=== PATIENT | female | born 1945 | race Caucasian/White ===

== ENCOUNTER 2020-03-18 08:05 | Outpatient (RCR) | payer OTHER, MEDICARE, SELFPAY | END 2020-04-17 23:59 | disposition home or self-care (01) | LOC: SPT 08:05 | PROVIDERS: PCP Family Medicine; Referring Provider Family Medicine; Visit Provider Family Medicine | DX: R42 Dizziness and giddiness (principal) | CPT/HCPCS: 95992; 97110; 97112; 97162 ==

== ENCOUNTER 2020-05-13 07:41 | Inpatient (IN) | payer OTHER, MEDICARE, SELFPAY ==
[2020-05-13] VITALS (15 sets, daily range): BP systolic 123–169; BP diastolic 70–91; PULSE 64–104; RESP 15–18; TEMP 36.5–36.9; O2SAT 95–99; BMI 26.6
--- NOTE | 2020-05-13 07:49 | XR_ITS ---
WS: [id number] Exam: XR chest 1V portable [id number] Date/Time of Exam: 05/13/2020 7:56 AM Reason For Exam: dyspnea/cough Comparison 08/15/2018. Findings: The lungs are clear and fully expanded. Costophrenic angles are sharp. No infiltrates. Bronchovascula r relief appears normal. Cardiac silhouette is unremarkable. Bony elements are intact. XR/XR chest 1V portable [id number] IMPRESSION: Unremarkable chest radiograph.
--- NOTE | 2020-05-13 08:04 | ED_ITS ---
HPI - Nausea/Vomiting/Diarrhea General: Chief complaint: Nausea/Vomiting/Diarrhea Stated complaint: N/V, DIZZINESS Time Seen by Provider: 05/13/20 07:47 History of Present Illness: HPI Narrative: 75-year-old female presents emergency room complaining of nausea vomiting and some episodes of loose stool. It began this morning. She had recently been taken off her amitriptyline because of episodes of dizziness. She usually sees Dr. Collins should sometime in mid March she stopped the amitriptyline. Prior to that she had 1 other episode of severe dizziness states when she has the episodes movement seems to worsen it but between episodes movement turning her head change in posture etc. does not change at all. There is no associated change in vision speech or swallowing. She denies any chest pain. States she chronically has some bowel issues and occasionally has some bowel discomfort but is not particularly worsened when she gets these episodes other than being very nauseous. No shortness of breath. MD elicited complaint: nausea, vomiting and diarrhea Onset (ago): hour(s) Description of vomiting: watery Description of diarrhea: lose Associated nausea: No Location of pain: None Radiation: diffuse Severity: moderate Exacerbating factors: vomiting, movement and standing Relieving factors: rest Associated symtoms: Denies altered mental status, anxiety, bloating, change in vision, chest pain, cough, diaphoresis, decreased urine output, dizziness, dysuria, epistaxis, fatigue, fecal incontinence, fevers/chills, headache(s), anorexia, malaise, myalgias, nausea, numbness, palpitations, rash, short of breath, syncope, tenesmus, tinnitus or weakness Review of Systems Const: Denies: fatigue, malaise or diaphoresis Eyes: Denies: change in vision ENMT: Denies: tinnitus Card: Denies: chest pain, palpitations or syncope Resp: Denies: dyspnea, productive cough or non-productive cough GI: Denies: nausea, bloating or fecal incontinence : Denies: dysuria Skin/Breast: Denies: rash or pruritus Neuro: Denies: headache(s) or dizziness PFS ED PFSH: Medical History Asthma Chronic back pain DJD (degenerative joint disease) Hyperlipidemia Surgical History History of back surgery History of knee joint replacement History of lumbar surgery History of neck surgery History of tonsillectomy History of total hysterectomy Family History (Updated 05/13/20 @ 11:47 by Cleveland Todd MD) Other CAD (coronary artery disease) Dementia Social History (Updated 05/13/20 @ 11:47 by Cleveland Todd MD) Smoking and tobacco status: never smoked Alcohol intake: never Substance/Drug Use: never Physical Exam Const: COMMON NORMALS: no acute distress EXAM LIMITATIONS: no altered mental status GENERAL APPEARANCE: cooperative and comfortable ORIENTATION/CONSCIOUSNESS: Yes awake, Yes oriented to person, Yes oriented to place and Yes oriented to time HENMT: COMMON NORMALS: normocephalic, atraumatic, hearing grossly normal bilaterally, external ears normal, EAC's normal, TM's normal bilaterally and Normal nasal mucous membranes and turbinates present HEAD & SCALP: normocephalic and atraumatic NOSE: Normal nasal mucous membranes and turbinates present EXTERNAL EAR: Yes external ears normal EXTERNAL AUDITORY CANAL: EAC's normal TYMPANIC MEMBRANE: TM's normal bilaterally Eye: COMMON NORMALS: Equal, round and reactive pupils present, EOMs intact bilaterally, conjunctivae normal and no scleral icterus CONJUNCTIVA: Yes conjunctivae normal PUPIL: Yes Equal, round and reactive pupils present Neck/C-Spine: COMMON NORMALS: no JVD Lymph: LYMPHATIC: no lymphadenopathy noted and no lymphedema noted Resp: COMMON NORMALS: normal respiratory effort, No retractions, No use of accessory muscles and clear to auscultation bilaterally AUSCULTATION: clear to auscultation bilaterally Cardio: COMMON NORMALS: no JVD, regular rate, regular rhythm and No murmurs present (Cardio) RATE: regular rate and tachycardic RHYTHM: regular rhythm and abnormal rhythm irregularly irregular GI: COMMON NORMALS: Soft to palpation and No hepatosplenomegaly present AUSCULTATION: Yes normoactive bowel sounds PALPATION: Yes Soft to palpation, No Tenderness to palpation present (GI), No Guarding due to palpation present (GI) and Yes No hepatosplenomegaly present Extremity: COMMON NORMALS: normal to inspection, capillary refill normal, no clubbing, cyanosis or edema, no calf tenderness and no pedal edema Neuro: SENSORIUM/ORIENTATION: Yes oriented to person, Yes oriented to place and Yes oriented to time Skin: COMMON NORMALS: no rashes or lesions noted GENERAL SKIN EXAM: no rashes or lesions noted Course Vital Signs: Vital signs: Vital Signs Temperature 98.2 F 05/13/20 15:48 Pulse Rate 80 05/13/20 15:48 Respiratory Rate 18 05/13/20 15:48 Blood Pressure 162/91 05/13/20 15:48 Pulse Oximetry 97 05/13/20 15:48 MDM - Nausea/Vomiting/Diarrhea MDM Narrative: Medical decision making narrative: Patient was given fluids and went to attempted ambulation she had severe difficulty with balance and was un able to ambulate independently she kept falling to the right. She has no other focal neurologic deficits. Suspect this may be just labyrinthitis she could be having a posterior CVA we will go ahead and put her on observation she will need to be watched further evaluation prior to discharge. Bridget with hospitalist orders written. Lab Data: Labs: Lab Results 05/13/20 05/13/20 05/13/20 Range/Units 08:40 08:40 08:40 WBC 10.1 H (4.0-10.0) 10^3/ uL RBC 5.52 H (4.1-5.3) 10^6/u L Hgb 15.9 H (11.5-15.3) g/dL Hct 47.4 H (37.0-47.0) % MCV 85.9 (81-99) fL MCH 28.8 (28.0-34.0) pg MCHC 33.5 (30.0-36.0) g/dL RDW 11.8 L (12.1-15.1) % Plt Count 173 (130-400) 10^3/c mm MPV 11.0 H (7.4-10.4) fL Neut % (Auto) 75.4 % Lymph % (Auto) 13.3 % [place] % (Auto) 8.3 % Eos % (Auto) 2.1 % Baso % (Auto) 0.6 % Neut # (Auto) 7.58 (1.8-7.7) 10^3/u L Lymph # (Auto) 1.3 (0.8-4.8) 10^3/u L [place] # (Auto) 0.8 (0.2-0.9) 10^3/u L Eos # (Auto) 0.2 (0.0-0.8) 10^3/u L Baso # (Auto) 0.1 (0.0-0.1) 10^3/u L Nucleated RBC % (a uto) 0 % Nucleated RBCs # 0.0 /100WBC Sodium 137 (136-145) mmol/L Potassium 3.5 (3.5-5.1) mmol/L Chloride 98 (98-107) mmol/L Carbon Dioxide 27 (22-29) mmol/L Anion Gap 15.5 (5-19) BUN 9 (8-23) mg/dL Creatinine 0.7 (0.5-0.9) mg/dL GFR Calculation Not Reportable Glucose 135 H (65-115) mg/dL Calculated Osmolal ity 285 (285-295) mOsm/k g Calcium 9.7 (8.5-10.5) mg/dL Magnesium 2.1 (1.7-2.3) mg/dL Total Bilirubin 0.8 (0.15-1.2) mg/dL AST 19 (0-32) U/L ALT 15 (0-33) U/L Alkaline Phosphata se 110 H (35-105) IU/L Total Protein 7.8 (6.6-8.7) g/dL Albumin 4.7 (3.5-5.2) g/dL Globulin 3.1 (1.3-4.6) g/dL TSH (0.27-4.20) uIU/ mL Urine Color Yellow (Yellow) Urine Appearance Cloudy (CLEAR) Urine pH 8.5 H (5-7) Ur Specific Gravit y 1.015 (1.005-1.030) Urine Protein Neg (Negative) Urine Glucose (UA) Norm (Normal) Urine Ketones Negative (Negative) Urine Blood Neg (Negative) Urine Nitrate Negative (Negative) Urine Bilirubin Neg (Negative) Prot Sulfosalicyli c Acd Negative (Negative) Urine Urobilinogen Norm (Negative) mg/dL Ur Leukocyte Bailey ase Negative (Negative) Urine RBC None (0-2) /hpf Urine WBC 0-4 H (0-5) /hpf Ur Squamous Epith Cells 0-4 H (0-5) /hpf Amorphous Sediment 2+ /hpf Urine Bacteria Trace (NONE) /hpf 05/13/20 Range/Units 08:40 WBC (4.0-10.0) 10^3/ uL RBC (4.1-5.3) 10^6/u L Hgb (11.5-15.3) g/dL Hct (37.0-47.0) % MCV (81-99) fL MCH (28.0-34.0) pg MCHC (30.0-36.0) g/dL RDW (12.1-15.1) % Plt Count (130-400) 10^3/c mm MPV (7.4-10.4) fL Neut % (Auto) % Lymph % (Auto) % [place] % (Auto) % Eos % (Auto) % Baso % (Auto) % Neut # (Auto) (1.8-7.7) 10^3/u L Lymph # (Auto) (0.8-4.8) 10^3/u L [place] # (Auto) (0.2-0.9) 10^3/u L Eos # (Auto) (0.0-0.8) 10^3/u L Baso # (Auto) (0.0-0.1) 10^3/u L Nucleated RBC % (a uto) % Nucleated RBCs # /100WBC Sodium (136-145) mmol/L Potassium (3.5-5.1) mmol/L Chloride (98-107) mmol/L Carbon Dioxide (22-29) mmol/L Anion Gap (5-19) BUN (8-23) mg/dL Creatinine (0.5-0.9) mg/dL GFR Calculation Glucose (65-115) mg/dL Calculated Osmolal ity (285-295) mOsm/k g Calcium (8.5-10.5) mg/dL Magnesium (1.7-2.3) mg/dL Total Bilirubin (0.15-1.2) mg/dL AST (0-32) U/L ALT (0-33) U/L Alkaline Phosphata se (35-105) IU/L Total Protein (6.6-8.7) g/dL Albumin (3.5-5.2) g/dL Globulin (1.3-4.6) g/dL TSH 6.41 H (0.27-4.20) uIU/ mL Urine Color (Yellow) Urine Appearance (CLEAR) Urine pH (5-7) Ur Specific Gravit y (1.005-1.030) Urine Protein (Negative) Urine Glucose (UA) (Normal) Urine Ketones (Negative) Urine Blood (Negative) Urine Nitrate (Negative) Urine Bilirubin (Negative) Prot Sulfosalicyli c Acd (Negative) Urine Urobilinogen (Negative) mg/dL Ur Leukocyte Bailey ase (Negative) Urine RBC (0-2) /hpf Urine WBC (0-5) /hpf Ur Squamous Epith Cells (0-5) /hpf Amorphous Sediment /hpf Urine Bacteria (NONE) /hpf Discharge Plan Discharge Patient Disposition: Admitted As Inpatient Admit Provider: Cleveland Todd Clinical Impression: Dizziness, Nausea Condition: Stable Coding Level of Care Code ED Digital Camera Technician for Chg Fwd Exam Problem Focused
--- NOTE | 2020-05-13 08:08 | CT_ITS ---
WS: [id number] CT HEAD TECHNIQUE: Noncontrast CT of the head obtained from the skullbase to the vertex. CLINICAL INFORMATION: dizziness COMPARISON: None. DLP: 872.[address] scans at [facility] use at least one of these dose optimization techniques: automat ed exposure control; mA and/or kV adjustment per patient size (includes targeted exams where dose is matched to clinical indication); or iterative reconstruction. FINDINGS: No evidence of intracranial hemorrhage or mass effect. Ventricular system and basal cisterns are camp nt. Mild small vessel changes with mild parenchymal volume loss. Benign basal ganglia calcifications. No extra-axial fluid collections. No evidence of mass or mass effect. Normal garcia-white differentiat ion. Paranasal sinuses and mastoid air cells are well aerated. .Normal visualized soft tissues. CT/CT head wo con* [id number] IMPRESSION: 1. No evidence of intracranial hemorrhage or mass effect. 2. Mild small vessel changes. Mild parenchymal volume loss. 3. No acute intracranial findings.
[2020-05-13] MEDS: promethazine 25 mg/mL SDV 1 mL 12.5 MG IM (08:22)
[2020-05-13] MEDS: sodium chloride 0.9% 500 ML 999 ML IV (08:22)
[2020-05-13 08:45] LABS: Basophils # 0.1 10^3/uL (0.0-0.1); Basophils % 0.6 %; Eosinophils # 0.2 10^3/uL (0.0-0.8); Eosinophils % 2.1 %; Hematocrit 47.4 % (37.0-47.0); Hemoglobin 15.9 g/dL (11.5-15.3); Lymphocytes # 1.3 10^3/uL (0.8-4.8); Lymphocytes % 13.3 %; Mean Corpuscular HGB Conc 33.5 g/dL (30.0-36.0); Mean Corpuscular Hemoglobin 28.8 pg (28.0-34.0); Mean Corpuscular Volume 85.9 fL (81-99); Monocytes # 0.8 10^3/uL (0.2-0.9); Monocytes % 8.3 %; Neutrophils # 7.58 10^3/uL (1.8-7.7); Neutrophils % 75.4 %; Nucleated Red Blood Cells % 0 %; Platelet Count 173 10^3/cmm (130-400); Red Blood Count 5.52 10^6/uL (4.1-5.3); Red Cell Distribution Width 11.8 % (12.1-15.1); White Blood Count 10.1 10^3/uL (4.0-10.0)
[2020-05-13 08:57] LABS: Add Urine Microscopic? YES; Amorphous Sediment Urine 2+ /hpf; Bacteria Urine TRACE /hpf; Bilirubin Urine Neg (Negative); Blood Urine Neg (Negative); Glucose Urine UA Norm (Normal); Ketones Urine Negative (Negative); Leukocyte Esterase Urine Negative (Negative); Nitrate Urine Negative (Negative); Protein Urine Neg (Negative); Specific Gravity, Urine 1.015 (1.005-1.030); Squamous Epithelial Cell Urine 0-4 /hpf (0-5); Sulfosalicylic Acid Urine Negative (Negative); Urine Appearance Cloudy (CLEAR); Urine Color Yellow (Yellow); Urobilinogen Urine Norm (Negative); WBC Urine 0-4 /hpf (0-5); pH Urine 8.5 (5-7)
[2020-05-13 08:58] LABS: Add Urine Culture? No
[2020-05-13 09:15] LABS: Alanine Aminotransferase 15 U/L (0-33); Albumin Level 4.7 g/dL (3.5-5.2); Alkaline Phosphatase 110 IU/L (35-105); Anion Gap 15.5 (5-19); Aspartate Amino Transferase 19 U/L (0-32); Blood Urea Nitrogen 9 mg/dL (8-23); Calcium 9.7 mg/dL (8.5-10.5); Carbon Dioxide 27 mmol/L (22-29); Chloride 98 mmol/L (98-107); Creatinine Clr Calc Pharmacy 65.0381; Globulin 3.1 g/dL (1.3-4.6); Glucose 135 mg/dL (65-115); Magnesium 2.1 mg/dL (1.7-2.3); Osmolality Calculated 285 mOsm/kg (285-295); Potassium 3.5 mmol/L (3.5-5.1); Sodium 137 mmol/L (136-145); Total Bilirubin 0.8 mg/dL (0.15-1.2); Total Protein 7.8 g/dL (6.6-8.7)
--- NOTE | 2020-05-13 10:45 | CT_ITS ---
WS: [id number] CTA HEAD AND NECK TECHNIQUE: Contrast enhanced CTA of the head and neck with coronal and sagittal reformatted images an d maximum intensity projection (MIP) images. NASCET criteria utilized. CLINICAL INFORMATION: TIA COMPARISON: None. DLP: 2021.[address] scans at [facility] use at least one of these dose optimization techniques: automat ed exposure control; mA and/or kV adjustment per patient size (includes targeted exams where dose is matched to clinical indication); or iterative reconstruction. FINDINGS: RIGHT: Right common carotid artery is patent. Mild atheromatous plaque right carotid bulb. No signifi cant right ICA stenosis. Right ICA is patent to the skull base. LEFT: Left common carotid artery is patent. Mild atheromatous plaque left carotid bulb extending into the ICA. Left ICA is patent to the skull base. No significant left ICA stenosis. Lung apices are well aerated. Heterogenous enhancing thyroid gland. A few small enhancing thyroid nod ules the largest measuring 5 mm in the left. ACDF C4-C6. Disc osteophyte complex with moderate centra l canal stenosis C5-6. INTRACRANIAL CTA: Both vertebral arteries are patent. Codominant and patent vertebral arteries bilaterally. Basilar art may is patent. Normal vascularity to the CLINICAL CYTOGENETICIST territory bilaterally. Both ICAs are patent at the skull base. Mild cavernous carotid calcification. Normal vascularity to t he STEPHEN and MCA territories bilaterally. CT/CT angio headneck* [id number] IMPRESSION: 1. No significant ICA stenosis bilaterally. 2. Normal intracranial CTA. No evidence of high-grade proximal stenosis. 3. Codominant and patent vertebral arteries bilaterally. Notified Derrell Segura DO at 05/13/2020 12:09 PM.
--- NOTE | 2020-05-13 11:43 | PM.HP ---
Providers/Chief Complaint Primary Care Provider: Ac Collins MD Chief Complaint: N/V, DIZZINESS History of Present Illness Dina Velarde is a 75 year old female who presents to the emergency department with complaints of dizziness. She reports that upon waking up this morning at 530, she tried to get out of bed and was significantly dizzy. She reported she got nauseous and threw up 3 or 4 times. She reports this happened to her about a year ago and lasted for several hours and then went away. She denies any history of chronic dizziness. reports no issues with unilateral weakness, speech issues, or cognitive issues. Patient denies any abdominal pain. She denies any diarrhea or vomiting. She reports no new medications. She recently went off her amitriptyline. She denies fevers, history of Covid, exposure to Covid. No recent falls. She has had a little bit of dysuria recently. Review of Systems General: Reports: 10 or more systems reviewed and unremarkable except in HPI and below Const: Denies: fever(s) or chills Eyes: Denies: change in vision ENMT: Denies: throat pain Card: Denies: chest pain Resp: Denies: dyspnea GI: Reports: nausea and vomiting; Denies: abdominal pain : Reports: dysuria; Denies: flank pain Musc: Denies: neck pain Skin/Breast: Denies: rash Neuro: Denies: headache(s) Psych: Denies: anxiety Endo: Denies: polyuria Buck/Lymph: Denies: easy bruising All/Imm: Denies: urticaria Medications/Allergies Home Medications Medication Instructions Recorded Confirmed Last Taken Type budesonide-formoterol HFA 80 2 puff INHALATION BID PRN 07/30/19 05/13/20 Unknown History mcg-4.5 mcg/actuation aerosol inhaler dicyclomine 10 mg capsule 10 mg PO DAILY PRN cap 07/30/19 05/13/20 05/13/20 History ezetimibe 10 mg tablet 10 mg PO DAILY@20 07/30/19 05/13/20 05/12/20 History hyoscyamine sulfate 0.125 mg tablet 0.125 mg PO QID@08,12,15,20 07/30/19 05/13/20 05/13/20 History metaxalone 800 mg tablet 800 mg PO TID@08,12,20 07/29/20 01/26/21 01/26/21 History simvastatin 40 mg tablet 40 mg PO DAILY@20 07/30/19 05/13/20 05/12/20 History morphine 30 - 60 mg PO Q4H PRN 05/13/20 05/13/20 05/13/20 History 30 mg pregabalin [Lyrica] 75 mg PO QID@08,,,05/13/20 05/13/20 05/12/20 History Allergies Allergy/AdvReac Type Severity Reaction Status Date / Time acetaminophen [From Vicodin] Allergy anaphylaxis Verified 10/31/19 13:25 aspirin Allergy na Verified 10/31/19 13:25 hydrocodone [From Vicodin] Allergy anaphylaxis Verified 10/31/19 13:25 naproxen Allergy bleeding Verified 10/31/19 13:25 ulcer niacin Allergy rash Verified 10/31/19 13:25 prednisone Allergy rash Verified 10/31/19 13:25 PFSH Acute PFSH: Medical History Asthma Chronic back pain DJD (degenerative joint disease) Hyperlipidemia Surgical History History of back surgery History of knee joint replacement History of lumbar surgery History of neck surgery History of tonsillectomy History of total hysterectomy Family History (Updated 05/13/20 @ 11:47 by Cleveland Todd MD) Other CAD (coronary artery disease) Dementia Social History (Updated 05/13/20 @ 11:47 by Cleveland Todd MD) Smoking and tobacco status: never smoked Alcohol intake: never Substance/Drug Use: never Vitals/I&O/Wt Last Vital Signs Temp 97.8 F 05/13/20 07:53 Pulse 73 05/13/20 10:00 Resp 15 05/13/20 10:00 BP 134/77 05/13/20 10:00 Pulse Ox 96 05/13/20 10:00 05/12/20 05/13/20 05/13/20 22:59 06:59 14:59 Intake Total 500 / 500 Balance 500 / 500 Weight last 48 hrs Weight 77.111 kg Physical Exam Narrative: EXAM NARRATIVE: General exam is a white female in no apparent distress denies dizziness when laying flat. HEENT: Atraumatic and normocephalic. Pupils equally round. Oropharynx is clear. Neck is supple no lymphadenopathy thyromegaly Cardiovascular regular rate and rhythm without murmur. No S3 or S4 Lungs clear no wheezing or crackles Abdomen is soft nontender with positive bowel sounds. No obvious organomegaly was deferred Extremities no cyanosis clubbing or edema, cap refill brisk less than 2 seconds Skin no rash Neuro no focal deficits. I did not ambulate her. She has no evidence of cerebellar signs. No obvious focal deficits. Data : 05/13/20 08:40 05/13/20 08:40 Other data: Urinalysis 0-4 reds, 0-[address] whites LFT[address] essentially normal CT head no acute changes, mild small vessel changes Chest x-ray reviewed by me no infiltrate. Telemetry demonstrates sinus rhythm. I have ordered an EKG. A&P Assessment and plan (1) Dizziness: Observation she was unable to ambulate secondary to her severe recurrent dizziness in the emergency department, posing a great risk for fall. Etiology of dizziness is not known but must exclude posterior circulation abnormality such as stroke. She does not qualify for TPA. CTA is pending If CTA negative consider MRI of brain Neurologic checks, telemetry, check TSH Status: Acute (2) Nausea: Secondary to above Status: Acute Additional A&P Information Hyperlipidemia, continue home medication Chronic back pain, continue home medication History of asthma, continue budesonide formoterol. Albuterol will be given as needed. Allow natural , per patient and Lovenox for DVT prophylaxis Attestations Medical Necessity Statement*: Will need less than 2 midnight stay for evaluation and treatment of dizziness. Time Spent in Patient Care: Greater than 35 minutes Coding Level of Care Code Acute General Office Assistant for g Fwd Diagnoses Dizziness R42 Nausea R11.0
--- NOTE | 2020-05-13 11:50 | ECG_ITS ---
[facility] Test Date: 2020-05-13 Pat Name: Dina Velarde Department: Room: 276 Gender: Female Pleat Taper: : 1945 Requested By: Cleveland Khan Order Number: [id number] Cedric MD: Edgar Jones M.D. Measurements Intervals [place] Rate: 68 P: 27 GA: 164 QRS: 45 QRSD: 82 T: 58 QT: 390 QTc: 416 Interpretive Statements SINUS RHYTHM WITH OCCASIONAL VENTRICULAR PREMATURE COMPLEXES NONSPECIFIC T-WAVE ABNORMALITY Compared to ECG 12/25/2018 06:30:02 Ventricular premature complex(es) now present T-wave abnormality now present Electronically Signed On 05-13-2020 17:13:28 [employer] by Edgar Jones M.D. [email or web address]
[2020-05-13 12:33] LABS: Thyroid Stimulating Hormone 6.41 uIU/mL (0.27-4.20)
--- NOTE | 2020-05-13 12:40 | MR_ITS ---
WS: [id number] MRI HEAD WITHOUT CONTRAST TECHNIQUE: Sagittal T1, T2 axial, T2 axial FLAIR, axial and coronal T1 images, axial susceptibility w eighted imaging, axial diffusion weighted images, and coronal T2 images were obtained. CLINICAL INFORMATION: dizziness, acute COMPARISON: CT earlier today FINDINGS: No evidence of restricted diffusion to suggest acute ischemia. Ventricular system and basal cisterns are patent. Mild small vessel changes. Moderate parenchymal volume loss. Normal posterior fossa. Norm al vascular flow voids at the skull base. No extra axial fluid collections. No evidence of mass or ma ss effect. Mild mucosal thickening in the ethmoid air cells. Mild mucosal thickening in the mastoid a ir cells. Normal optic chiasm and pituitary infundibulum. Mild to moderate symmetric atrophy involving the temp oral lobes and hippocampal formations. No hemosiderin on the susceptibility weighted images. MR/MR head wo con* [id number] IMPRESSION: 1. No evidence of restricted diffusion to suggest acute ischemia. 2. Mild small vessel changes. Moderate parenchymal volume loss. 3. Mild symmetric atrophy involving the temporal lobes hippocampal formations. 4. Mild mucosal thickening in the mastoid tips. 5. No hemosiderin on susceptibly weighted images.
--- NOTE | 2020-05-13 13:44 | PC.NURSE ---
Transportation set up for MRI at 1430
[2020-05-13] MEDS: ondansetron 2 mg/ML SDV 2 mL 4 MG IVP (15:57)
[2020-05-13] MEDS: pregabalin 75 mg Capsule PO ×2 (15:57→22:15)
[2020-05-13] MEDS: D5-NS 0.45% + KCL 20 mEq 20 MEQ/1,000 ML BAG 100 MEQ IV (15:58)
[2020-05-13] MEDS: enoxaparin 40 mg/0.4 mL Syringe SUBCUT (15:59)
--- NOTE | 2020-05-13 21:21 | PC.NURSE ---
PT IS SLEEPING IN BED.
--- NOTE | 2020-05-13 21:21 | PC.NURSE ---
PT IS SLEEPING IN BED.
--- NOTE | 2020-05-13 21:24 | PC.NURSE ---
PT IS SLEEPING IN BED.
[2020-05-13] MEDS: atorvastatin 40 mg Tablet 20 MG PO (22:14)
--- NOTE | 2020-05-13 23:58 | PC.NURSE ---
PT IS SLEEPING IN BED.
[2020-05-14] VITALS (11 sets, daily range): BP systolic 151–192; BP diastolic 78–110; PULSE 81–119; RESP 18–20; TEMP 36.4–37.4; O2SAT 94–100
[2020-05-14] MEDS: D5-NS 0.45% + KCL 20 mEq 20 MEQ/1,000 ML BAG 100 MEQ IV ×2 (01:50→14:19)
[2020-05-14] MEDS: ondansetron 2 mg/ML SDV 2 mL 4 MG IVP ×3 (02:19→23:18)
[2020-05-14 05:45] LABS: Basophils % 0.3 %; Eosinophils # 0.1 10^3/uL (0.0-0.8); Eosinophils % 0.8 %; Hematocrit 45.7 % (37.0-47.0); Hemoglobin 15.3 g/dL (11.5-15.3); Lymphocytes # 1.1 10^3/uL (0.8-4.8); Lymphocytes % 12.8 %; Mean Corpuscular HGB Conc 33.5 g/dL (30.0-36.0); Mean Corpuscular Hemoglobin 28.7 pg (28.0-34.0); Mean Corpuscular Volume 85.7 fL (81-99); Mean Platelet Volume 10.9 fL (7.4-10.4); Monocytes # 0.7 10^3/uL (0.2-0.9); Monocytes % 7.9 %; Neutrophils # 6.85 10^3/uL (1.8-7.7); Neutrophils % 77.9 %; Nucleated Red Blood Cells % 0 %; Platelet Count 179 10^3/cmm (130-400); Red Blood Count 5.33 10^6/uL (4.1-5.3); Red Cell Distribution Width 11.9 % (12.1-15.1); White Blood Count 8.8 10^3/uL (4.0-10.0)
[2020-05-14 06:15] LABS: Alanine Aminotransferase 13 U/L (0-33); Albumin Level 4.3 g/dL (3.5-5.2); Alkaline Phosphatase 100 IU/L (35-105); Anion Gap 12.8 (5-19); Aspartate Amino Transferase 18 U/L (0-32); Blood Urea Nitrogen 8 mg/dL (8-23); Calcium 8.9 mg/dL (8.5-10.5); Carbon Dioxide 26 mmol/L (22-29); Chloride 103 mmol/L (98-107); Creatinine Clr Calc Pharmacy 65.0381; Globulin 2.5 g/dL (1.3-4.6); Glucose 152 mg/dL (65-115); Osmolality Calculated 287 mOsm/kg (285-295); Potassium 3.8 mmol/L (3.5-5.1); Sodium 138 mmol/L (136-145); Total Bilirubin 0.7 mg/dL (0.15-1.2); Total Protein 6.8 g/dL (6.6-8.7)
--- NOTE | 2020-05-14 06:41 | PC.NURSE ---
PT STARTED HAVING SEVERE SYMPTOMS VOMITING, CHILLS, AND STOMACH PAINS.
--- NOTE | 2020-05-14 06:45 | CT_ITS ---
WS: [id number] CT ABDOMEN PELVIS TECHNIQUE: Contrast-enhanced CT of the abdomen and pelvis with coronal and sagittal reformatted image s. CLINICAL INFORMATION: abdominal pain COMPARISON: CT 9 9018 DLP: 704.[address] scans at [facility] use at least one of these dose optimization techniques: automat ed exposure control; mA and/or kV adjustment per patient size (includes targeted exams where dose is matched to clinical indication); or iterative reconstruction. FINDINGS:Tiny amount of induration involving the ascending colon and transverse colon and. Correlatio n for mild colitis. Mild diffuse fatty infiltration liver. Normal spleen. Small splenule. Normal pancreas. Adrenal glands are normal. No hydronephrosis. Normal renal parenchymal enhancement. Normal caliber abdominal aorta. Aortic calcification. Normal sigmoid colon. No evidence of high-grade small or large bowel obstruction. No free fluid in th e abdomen or pelvis. Lung bases are well aerated. Tiny fat-containing umbilical hernia. No abdominal or pelvic lymphadenopathy. Mild spondylitic changes lumbar spine. CT/CT abdomen pelvis w con* [id number] IMPRESSION: 1. Tiny amount of induration involving the ascending colon and transverse colo n and. Correlation for mild colitis. 2. No other significant findings. 3. Mild diffuse fatty infiltration liver. 4. Normal caliber abdominal aorta. 5. No hydronephrosis.
[2020-05-14] MEDS: promethazine 25 mg/mL SDV 1 mL 12.5 MG IM (07:21)
[2020-05-14] MEDS: iohexol 300 mg/mL 100 mL Btl IV (07:59)
[2020-05-14] MEDS: LORazepam 2 mg/mL INJ 1 mL 0.5 MG IVP (09:16)
--- NOTE | 2020-05-14 09:25 | P.PN_ITS ---
Subjective Subjective: Interval history: Dina reports her dizziness has continued since admission. This morning, around 6 AM or so she had a start of some abdominal pain vomiting. She is also having some loose stool. She has had some chills. No fever has been recorded. She would like her Levsin ordered as some of the symptoms have responded to this in the past. She reports her last EGD and colonoscopy were around 5 years ago. Medications: Reviewed: Yes Vitals/I&O/Wt Last Vital Signs Temp 97.7 F 05/14/20 07:47 Pulse 89 05/14/20 08:51 Resp 18 05/14/20 08:51 BP 153/83 05/14/20 07:47 Pulse Ox 96 05/14/20 08:51 05/13/20 05/14/20 05/14/20 22:59 06:59 14:59 Intake Total 986.667 / 1486.667 Balance 986.667 / 1486.667 Weight last 48 hrs Weight 77.111 kg Physical Exam Narrative: EXAM NARRATIVE: General exam is a white female vomiting some bilious appearing material Neck is supple no lymphadenopathy thyromegaly Cardiovascular regular rate and rhythm without murmur. No S3 or S4 Lungs clear no wheezing or crackles Abdomen slight tenderness in the epigastric area. No mass or organomegaly Extremities no cyanosis clubbing or edema, cap refill brisk less than 2 seconds Skin no rash Neuro no focal deficits. Data : 05/14/20 05:24 05/14/20 05:24 A&P Assessment and plan (1) Dizziness: Placed in observation yesterday. With recurrence of vomiting, abdominal pain, and diarrhea she is currently not able to hydrate and may not be able to be discharged. I will reassess her later this afternoon and if requires continued hospitalization will change to regular admission. She was unable to ambulate secondary to her severe recurrent dizziness in the emergency department, posing a great risk for fall. Etiology of dizziness is not known but must exclude posterior circulation abnormality such as stroke. She did not qualify for TPA. After admission her CTA of her head and neck demonstrated no obstruction, an MRI of her brain did not demonstrate a CVA. Status: Acute (2) Nausea: Now with abdominal pain. Patient is convinced Levsin may help. This was ordered as needed. Discussed with her the risks of this that increased nausea or vomiting could occur. Continue hydration Secondary to association with abdominal pain start Pepcid. Check lipase. CT abdomen and pelvis done this morning demonstrated no obstruction. Slight induration involving the ascending and transverse colon noted possible consis tent with colitis. Secondary to the vomiting, diarrhea and chills we will also check a rapid Covid test, C. difficile, stool culture Medication as needed for nausea Status: Acute Additional A&P Information Hyperlipidemia, continue home medication Chronic back pain, continue home medication History of asthma, continue budesonide formoterol. Albuterol will be given as needed. Allow natural , per patient and Lovenox for DVT prophylaxis Attestations Medical Necessity Statement*: At this point needs continued hospital stay secondary to recurrent nausea and vomiting with inability to stay hydrated. Coding Level of Care Code Acute Painter Helper for Roseline Carpenter Diagnoses Dizziness R42 Nausea R11.0
[2020-05-14 09:46] LABS: Lipase 35 U/L (13-60)
[2020-05-14] MEDS: famotidine 20 mg/2 mL INJ IVP ×2 (10:29→21:03)
[2020-05-14 11:26] LABS: SARS Covid-2 Antigen Negative (Negative)
[2020-05-14] MEDS: enoxaparin 40 mg/0.4 mL Syringe SUBCUT (14:20)
[2020-05-14] MEDS: pregabalin 75 mg Capsule PO ×2 (14:21→20:41)
[2020-05-14] MEDS: hyoscyamine ODT 0.125 mg Tablet PO (14:24)
[2020-05-14] MEDS: sodium chloride 0.9% 1,000 ML 125 ML IV (14:28)
[2020-05-14] MEDS: atorvastatin 40 mg Tablet 20 MG PO (20:40)
[2020-05-14] MEDS: labetalol 5 mg/mL SDV 20mL IVP (21:15)
[2020-05-14] MEDS: sodium chloride 0.9% 1,000 ML 100 ML IV (23:10)
[2020-05-15] VITALS (15 sets, daily range): BP systolic 122–190; BP diastolic 73–100; PULSE 68–142; RESP 14–20; TEMP 36.4–37.6; O2SAT 94–97
[2020-05-15] MEDS: hyDRALAzine 20 mg/mL INJ 1 mL 5 MG IVP (03:57)
[2020-05-15 05:31] LABS: Basophils % 0.2 %; Hematocrit 43.9 % (37.0-47.0); Lymphocytes % 5.7 %; Mean Corpuscular HGB Conc 34.2 g/dL (30.0-36.0); Mean Corpuscular Hemoglobin 29.1 pg (28.0-34.0); Mean Corpuscular Volume 85.2 fL (81-99); Mean Platelet Volume 10.9 fL (7.4-10.4); Monocytes # 0.6 10^3/uL (0.2-0.9); Monocytes % 3.2 %; Neutrophils # 16.18 10^3/uL (1.8-7.7); Neutrophils % 90.3 %; Nucleated Red Blood Cells % 0 %; Platelet Count 184 10^3/cmm (130-400); Red Blood Count 5.15 10^6/uL (4.1-5.3); Red Cell Distribution Width 11.9 % (12.1-15.1); White Blood Count 17.9 10^3/uL (4.0-10.0)
[2020-05-15 06:11] LABS: Alanine Aminotransferase 18 U/L (0-33); Albumin Level 4.5 g/dL (3.5-5.2); Alkaline Phosphatase 94 IU/L (35-105); Anion Gap 16.9 (5-19); Aspartate Amino Transferase 25 U/L (0-32); Blood Urea Nitrogen 11 mg/dL (8-23); Calcium 8.8 mg/dL (8.5-10.5); Carbon Dioxide 23 mmol/L (22-29); Chloride 100 mmol/L (98-107); Creatinine Clr Calc Pharmacy 65.0381; Globulin 2.6 g/dL (1.3-4.6); Glucose 157 mg/dL (65-115); Osmolality Calculated 287 mOsm/kg (285-295); Sodium 137 mmol/L (136-145); Total Bilirubin 0.8 mg/dL (0.15-1.2); Total Protein 7.1 g/dL (6.6-8.7)
[2020-05-15 06:16] LABS: Potassium 2.9 mmol/L (3.5-5.1)
[2020-05-15 08:07] LABS: Magnesium 1.7 mg/dL (1.7-2.3)
[2020-05-15] MEDS: lidocaine 1% 5 ML in potassium chloride premix 100 ML 25 ML IV (08:42)
[2020-05-15] MEDS: morphine IR 15 mg Tablet 30 MG PO ×2 (08:43→17:28)
[2020-05-15] MEDS: hyoscyamine ODT 0.125 mg Tablet PO ×2 (08:44→15:14)
[2020-05-15] MEDS: pregabalin 75 mg Capsule PO ×4 (08:44→19:55)
[2020-05-15] MEDS: famotidine 20 mg/2 mL INJ IVP ×2 (09:26→22:44)
--- NOTE | 2020-05-15 09:28 | PC.NURSE ---
PRN Morphine Reassessment- Patient resting in bed with eyes closed sleeping. No signs of distress or pain at this time.
--- NOTE | 2020-05-15 11:03 | PC.CHAP ---
Pastoral Care Encounter/Spiritual Assessment Type of Contact [] Declined case consultant visit [] Patient/Family/Request visit [] Outpatient visit [] Follow-up visit [] Physician referral [] Code/Alert [] Routine visit [] Staff referral [] Actively dying [] Patient sleeping [] Family support [] [] Out of room [] Palliative care [] [] Receiving care in room [] Pre-surgical visit [] Trauma [] Long length of stay [] ICU visit [X] Other: covid 19 Relational/Emotional Strength [] Patient feels connected with others/family/visitors/staff [] Distress [] Loneliness/isolation [] Abandonment Spirituality of Patient [] Person of Bailey [] Attends Buddhist of their Bailey [] Believes in Prayer [] Reads Bible or Baptist materials [] There are Spiritual issues to be addressed Government Contracts Manager Interventions [] Prayer [] Active listening [] Non-anxious presence [] Spiritual/emotional support [] Crisis/trauma care [] Spiritual counseling [] Bereavement support [] Provided bereavement packet [] Provided Bible/devotional materials [] Provided toy/stuffed animal, coloring book to patient or family member [] Provided Communion [] Anointing/[place] [] Salvation [] Completed spiritual assessment [] Other: Impact on Illness or Injury [] Angry [] Fearful [] Anxious [] Often cries [] Exhaustion [] Unable to work [] Unable to attend buddhism [] Unable to walk/stand [] Unable to read [] Unable to drive [] Unable to eat/drink [] Unable to sleep [] Unable to be with family [] Patient intubated [] Other: Summary Other: covid 19 Time spent with patient 5 mins
[2020-05-15] MEDS: sodium chloride 0.9% 1,000 ML 75 ML IV (12:11)
--- NOTE | 2020-05-15 14:33 | ECG_ITS ---
[facility] Test Date: 2020-05-15 Pat Name: Dina Velarde Department: Room: 276 Gender: Female Superintendent [employer]: : 1945 Requested By: Cleveland Khan Order Number: [id number] Cedric MD: Ariella Mackenzie M.D. Measurements Intervals [place] Rate: 86 P: 72 VT: 168 QRS: 58 QRSD: 90 T: 60 QT: 354 QTc: 424 Interpretive Statements SINUS RHYTHM WITH OCCASIONAL VENTRICULAR PREMATURE COMPLEXES Compared to ECG 05/13/2020 07:58:53 T-wave abnormality no longer present Electronically Signed On 05-15-2020 18:13:09 CASTING MACHINE OPERATOR by Ariella Mackenzie M.D. [id number]
--- NOTE | 2020-05-15 14:37 | PM.PN ---
Subjective Subjective: Interval history: Dina reports she feels little bit better. Not dizzy. No chest pain. No shortness of breath. Rate is less, although I see one recording of 142 listed. She states she is still a little nauseous but better. Medications: Reviewed: Yes Vitals/I&O/Wt Last Vital Signs Temp 98.2 F 05/15/20 11:45 Pulse 117 H 05/15/20 11:45 Resp 18 05/15/20 11:45 BP 157/89 05/15/20 11:45 Pulse Ox 96 05/15/20 11:45 05/14/20 05/15/20 05/15/20 22:59 06:59 14:59 Intake Total 1000.000 / 2135.000 1.667 / 2136.667 975 / 975 Output Total 550 / 550 100 / 100 Balance 1000.000 / 2135.000 -548.333 / 1586.667 875 / 875 Physical Exam Narrative: EXAM NARRATIVE: General exam is a white female conversant and appears more comfortable Neck is supple no lymphadenopathy thyromegaly Cardiovascular slight tachycardia, no murmur Lungs clear no wheezing or crackles Abdomen no abdominal tenderness Extremities no cyanosis clubbing or edema, cap refill brisk less than 2 seconds Skin no rash Neuro no focal deficits. Data : 05/15/20 05:09 05/15/20 05:09 A&P Assessment and plan (1) Dizziness: Reports dizziness is much improved She was unable to ambulate secondary to her severe recurrent dizziness in the emergency department, posing a great risk for fall. Etiology of dizziness is not known but must exclude posterior circulation abnormality such as stroke. She did not qualify for TPA. After admission her CTA of her head and neck demonstrated no obstruction, an MRI of her brain did not demonstrate a CVA. Status: Acute (2) Nausea: Abdominal pain started yesterday. Significant loose stools as well. Continue hydration Secondary to association with abdominal pain start Pepcid. Lipase was checked and normal. CT abdomen and pelvis done this morning demonstrated no obstruction. Slight induration involving the ascending and transverse colon noted possible consistent with colitis. Secondary to the vomiting, diarrhea and chills a rapid Covid test, was performed and is negative. C. difficile and stool culture pending Secondary to severe nausea I gave her some steroids yesterday. Hold currently and reassess need tomorrow. Status: Acute Additional A&P Information Hypokalemia. Supplement. Check magnesium level. Hyperlipidemia, continue home medication Chronic back pain, continue home medication History of asthma, continue budesonide formoterol. Albuterol will be given as needed. Allow natural , per patient and Lovenox for DVT prophylaxis Attestations Medical Necessity Statement*: Needs continued hospitalization, for treatment of nausea. Secondary to persistence of this as well as vomiting she is at risk for dehydration Coding Level of Care Code Acute Terrazzo Installer for Roseline Carpenter Diagnoses Dizziness R42 Nausea R11.0
[2020-05-15] MEDS: acetaminophen 325 mg Tablet 650 MG PO ×2 (15:13→22:43)
[2020-05-15] MEDS: methocarbamol 500 mg Tablet PO (15:13)
[2020-05-15] MEDS: enoxaparin 40 mg/0.4 mL Syringe SUBCUT (15:14)
[2020-05-15] MEDS: magnesium sulfate premix 2 GM/50 ML PIGGYBACK IV (16:41)
[2020-05-15] MEDS: atorvastatin 40 mg Tablet 20 MG PO (19:55)
[2020-05-16] VITALS (14 sets, daily range): BP systolic 122–156; BP diastolic 70–86; PULSE 63–96; RESP 16–18; TEMP 36.6–37.2; O2SAT 92–97
[2020-05-16] MEDS: sodium chloride 0.9% 1,000 ML 75 ML IV (02:02)
[2020-05-16 04:45] LABS: Basophils # 0.1 10^3/uL (0.0-0.1); Basophils % 0.5 %; Eosinophils % 0.2 %; Hematocrit 44.1 % (37.0-47.0); Hemoglobin 14.4 g/dL (11.5-15.3); Lymphocytes # 3.6 10^3/uL (0.8-4.8); Lymphocytes % 24.7 %; Mean Corpuscular HGB Conc 32.7 g/dL (30.0-36.0); Mean Corpuscular Hemoglobin 29.1 pg (28.0-34.0); Mean Corpuscular Volume 89.3 fL (81-99); Mean Platelet Volume 10.7 fL (7.4-10.4); Monocytes # 1.6 10^3/uL (0.2-0.9); Monocytes % 10.9 %; Neutrophils % 63.3 %; Nucleated Red Blood Cells % 0 %; Platelet Count 166 10^3/cmm (130-400); Red Blood Count 4.94 10^6/uL (4.1-5.3); Red Cell Distribution Width 12.2 % (12.1-15.1); White Blood Count 14.4 10^3/uL (4.0-10.0)
[2020-05-16 05:10] LABS: Alanine Aminotransferase 19 U/L (0-33); Alkaline Phosphatase 76 IU/L (35-105); Anion Gap 12.8 (5-19); Aspartate Amino Transferase 25 U/L (0-32); Blood Urea Nitrogen 13 mg/dL (8-23); Calcium 8.6 mg/dL (8.5-10.5); Carbon Dioxide 28 mmol/L (22-29); Chloride 103 mmol/L (98-107); Creatinine Clr Calc Pharmacy 65.0381; Globulin 2.5 g/dL (1.3-4.6); Glucose 94 mg/dL (65-115); Magnesium 2.3 mg/dL (1.7-2.3); Osmolality Calculated 290 mOsm/kg (285-295); Potassium 3.8 mmol/L (3.5-5.1); Sodium 140 mmol/L (136-145); Total Bilirubin 0.8 mg/dL (0.15-1.2); Total Protein 6.5 g/dL (6.6-8.7)
[2020-05-16] MEDS: promethazine 25 mg/mL SDV 1 mL IM (09:57)
[2020-05-16] MEDS: morphine IR 15 mg Tablet 30 MG PO ×2 (11:40→18:48)
[2020-05-16] MEDS: methocarbamol 500 mg Tablet PO (11:40)
[2020-05-16] MEDS: pregabalin 75 mg Capsule PO ×3 (11:40→22:18)
[2020-05-16] MEDS: enoxaparin 40 mg/0.4 mL Syringe SUBCUT (14:26)
--- NOTE | 2020-05-16 14:52 | PM.CONSULT ---
Providers/Reason For Consult Consulting Physican/Specialty*: Nguyễn Colmenares MD Reason for Consult*: Persistent nausea and vomiting Attending Physician: Cleveland Todd MD Primary Care Provider: Ac Collins MD History of Present Illness History of Present Illness Chief Complaint: Nausea and vomiting History of present illness: Dina Velarde is a 75 year old female patient has been complaining of nausea and vomiting in a cyclical and frequent episodes over the past year or so without obvious explanation. She denies history of chronic NSAIDs or history of peptic ulcer disease. Patient was admitted on the hospitalist service because of her dizziness and further work-up in the form of CT scan of the abdomen and pelvis: Mild diffuse fatty infiltration liver. Normal spleen. Small splenule. Normal pancreas. Adrenal glands are normal. No hydronephrosis. Normal renal parenchymal enhancement. Normal caliber abdominal aorta. Aortic calcification. Normal sigmoid colon. No evidence of high-grade small or large bowel obstruction. No free fluid in the abdomen or pelvis. Lung bases are well aerated. Tiny fat-containing umbilical hernia. No abdominal or pelvic lymphadenopathy. Mild spondylitic changes lumbar spine. CT/CT abdomen pelvis w con* [id number] IMPRESSION: 1. Tiny amount of induration involving the ascending colon and transverse colon and. Correlation for mild colitis. 2. No other significant findings. 3. Mild diffuse fatty infiltration liver. 4. Normal caliber abdominal aorta. 5. No hydronephrosis. Because of the patient's frequency of nausea and vomiting General surgery was consulted for potential intervention in the form of upper endoscopy, as the patient had one remotely, patient denies any hematemesis or bleeding per rectum. Patient denies history of fatty dyspepsia or biliary colic's when asked her. Review of Systems General: Reports: 10 or more systems reviewed and unremarkable except in HPI and below Meds/Allergies Home Medications and Allergies Home Medications Medication Instructions Recorded Confirmed Last Taken Type budesonide-formoterol HFA 80 2 puff INHALATION BID PRN 07/30/19 05/13/20 Unknown History mcg-4.5 mcg/actuation aerosol inhaler dicyclomine 10 mg capsule 10 mg PO DAILY PRN cap 07/30/19 05/13/20 05/13/20 History ezetimibe 10 mg tablet 10 mg PO DAILY@20 07/30/19 05/13/2005/12/21 History hyoscyamine sulfate 0.125 mg tablet 0.125 mg PO QID@08,,,07/30/19 05/13/20 05/13/20 History metaxalone 800 mg tablet 800 mg PO TID@08,12,20 07/30/19 05/13/20 05/13/20 History simvastatin 40 mg tablet 40 mg PO DAILY@20 07/30/19 05/13/20 05/12/20 History morphine 30 - 60 mg PO Q4H PRN 05/13/20 05/13/20 05/13/20 History 30 mg pregabalin [Lyrica] 75 mg PO QID@,,,05/13/20 05/13/20 05/12/20 History Allergies Allergy/AdvReac Type Severity Reaction Status Date / Time acetaminophen [From Vicodin] Allergy anaphylaxis Verified 05/16/20 14:53 aspirin Allergy na Verified 05/16/20 14:53 hydrocodone [From Vicodin] Allergy anaphylaxis Verified 05/16/20 14:53 naproxen Allergy bleeding Verified 05/16/20 14:53 ulcer niacin Allergy rash Verified 05/16/20 14:53 prednisone Allergy rash Verified 05/16/20 14:53 Current Medications Current Medications Generic Name Dose Route Start Last Admin Trade Name Freq PRN Reason Stop Dose Admin Acetaminophen 650 mg 05/15/20 14:37 05/15/20 22:43 Acetaminophen 325 Mg Tablet PO 650 mg Q6H PRN Administration MILD PAIN Atorvastatin Calcium 20 mg 05/13/20 20:00 05/15/20 19:55 Atorvastatin 40 Mg Tablet PO 20 mg DAILY@20 LAWANDA Administration Enoxaparin Sodium 40 mg 05/13/20 14:00 05/16/20 14:26 Enoxaparin 40 Mg/0.4 Ml Syringe SUBCUT 40 mg Q24H LAWANDA Administration Famotidine 20 mg 05/14/20 09:30 05/16/20 10:01 Famotidine 20 Mg/2 Ml Inj IVP Not Given Q12H LAWANDA Hyoscyamine 0.125 mg 05/14/20 08:48 05/15/20 15:14 Hyoscyamine Odt 0.125 Mg Tablet PO 0.125 mg TIDAC PRN Administration GI IRRITATION Sodium Chloride 1,000 mls @ 75 mls/hr 05/14/20 14:30 05/16/20 11:20 Sodium Chloride 0.9% IV Not Given .[id number] LAWANDA Lorazepam 0.5 mg 05/14/20 08:02 05/14/20 09:16 Lorazepam 2 Mg/Ml Inj 1 Ml IVP 0.5 mg Q4H PRN Administration ANXIETY Methocarbamol 500 mg 05/15/20 15:08 05/16/20 11:40 Methocarbamol 500 Mg Tablet PO 500 mg QID PRN Administration MUSCLE SPASMS Morphine Sulfate 30 mg 05/13/20 12:48 05/16/20 11:40 Morphine Ir 15 Mg Tablet PO 30 mg Q4H PRN Administration SEVERE PAIN Ondansetron HCl 4 mg 05/13/20 12:48 05/14/20 23:18 Ondansetron 2 Mg/Ml Sdv 2 Ml IVP 4 mg Q6H PRN Administration vomiting, or N/V if npo Pregabalin 75 mg 05/13/20 15:00 05/16/20 14:29 Pregabalin 75 Mg Capsule PO 75 mg QID@08,12,15,20 LAWANDA Administration Promethazine HCl 25 mg 05/16/20 08:39 05/16/20 09:57 Promethazine 25 Mg/Ml Sdv 1 Ml IM 25 mg Q6H PRN Administration NAUSEA Fluticasone/Salmeterol 1 puff 05/13/20 20:00 05/15/20 20:52 Fluticasone-Salmeterol 250-50 Diskus INHALATION 1 puff BID.RESPIRATORY LAWANDA Administration PFSH Acute PFSH: Medical History Asthma Chronic back pain DJD (degenerative joint disease) Hyperlipidemia Surgical History History of back surgery History of knee joint replacement History of lumbar surgery History of neck surgery History of tonsillectomy History of total hysterectomy Family History Other CAD (coronary artery disease) Dementia Social History Smoking and tobacco status: never smoked Alcohol intake: never Substance/Drug Use: never Vitals/I&O/Wt Last Vital Signs Temp 98.9 F 05/16/20 12:00 Pulse 88 05/16/20 12:00 Resp 18 05/16/20 12:00 BP 155/83 05/16/20 12:00 Pulse Ox 95 05/16/20 12:00 05/15/20 05/16/20 05/16/20 22:59 06:59 14:59 Intake Total 114 / 2114 1000 / 3115 432.5 / 432.5 Balance 1139 1000 / 3015 432.5 / 432.5 Physical Exam Narrative: EXAM NARRATIVE: Patient is conscious alert oriented X3 BMI 27 Head and neck examination PERRLA no masses no cervical lymphadenopathy no jaundice Cardiac examination audible S1-S2 no murmurs no gallops no arrhythmias Chest is clear bilateral,abscence of Rhonchi or wheezes,no surgical emphysema Abdomen nontender nondistended soft no organomegaly guarding or rigidity/no signs of peritonitis Lower midline scar Extremities no cyanosis no clubbing no edema Data Micro: Micro: Microbiology 05/15/20 04:40 Enteric Pathogens (PCR) - Final Stool Routine Col lection C.difficile Toxin B Gene (PCR) - Fin al A&P Assessment and plan (1) Nausea: Plan of care; After thorough history and physical examination and reviewing the chart, plan to perform a diagnostic esophagogastroduodenoscopy with possible biopsy in the GI lab tomorrow. I discussed with the patient in detail the risk,benefits,alternatives and indications.The risk of aspiration, bleeding, soft tissue injury, perforation of the stomach/esophagus and other potential concomitant complications were explained to the patient in details.The patient understood this well and did agree to proceed. Rationale was carefully and clearly discussed with the patient.Appropriate informed consent have been reviewed and signed All questions have been answered and all concerns have been addressed to patient's satisfaction. I would also recommend to obtain an ultrasound of the gallbladder to rule out potential gallbladder pathology although the CT scan did not show specific changes with that regard.yet an ultrasound would be a better tool to study the gallbladder Status: Acute Consult Attestations Medical Necessity Statement: Continue inpatient hospitalization for medical & surgical care Time Spent in Patient Care: (>than 50% of time spent in counselling and/or direct pt care on unit). Coding Level of Care Code Acute District Claims Manager for [employer] Diagnoses Nausea R11.0
--- NOTE | 2020-05-16 16:05 | P.PN_ITS ---
Subjective Subjective: Interval history: Dina continues to have some vomiting. She has had no diarrhea. No chills. No chest pain or shortness of breath. Medications: Reviewed: Yes Vitals/I&O/Wt Last Vital Signs Temp 98.9 F 05/16/20 12:00 Pulse 88 05/16/20 12:00 Resp 18 05/16/20 12:00 BP 155/83 05/16/20 12:00 Pulse Ox 95 05/16/20 12:00 05/16/20 05/16/20 05/16/20 06:59 14:59 22:59 Intake Total 1000 / 3115 432.5 / 432.5 Balance 1000 / 3015 432.5 / 432.5 Physical Exam Narrative: EXAM NARRATIVE: General exam conversant female, no distress Neck is supple no lymphadenopathy thyromegaly Cardiovascular slight tachycardia, no murmur Lungs clear no wheezing or crackles Abdomen no abdominal tenderness Extremities no cyanosis clubbing or edema, cap refill brisk less than 2 seconds Skin no rash Neuro no focal deficits. Data : 05/16/20 04:32 05/16/20 04:32 Micro: Microbiology 05/15/20 04:40 Enteric Pathogens (PCR) - Final Stool Routine Collection C.difficile Toxin B Gene (PCR) - Final A&P Assessment and plan (1) Dizziness: Reports dizziness has abated She was unable to ambulate secondary to her severe recurrent dizziness in the emergency department, posing a great risk for fall. Etiology of dizziness is not known but must exclude posterior circulation abnormality such as stroke. She did not qualify for TPA. After admission her CTA of her head and neck demonstrated no obstruction, an MRI of her brain did not demonstrate a CVA. Status: Acute (2) Nausea: Abdominal pain started after admission. Reports it is mainly been in her epigastric area. No LFT abnormality. Had some loose stools which have gone renata y. Nausea and vomiting persist. Continue hydration Continue IV Pepcid. Lipase was checked and normal. CT abdomen and pelvis done this morning demonstrated no obstruction. Slight induration involving the ascending and transverse colon noted possible consistent with colitis. C. difficile, stool culture antigens negative Secondary to the vomiting, diarrhea and chills a rapid Covid test, was performed and is negative. C. difficile and stool culture pending Secondary to recurrent vomiting and nausea will consider EGD. Surgical consult. Check gallbladder ultrasound Status: Acute Additional A&P Information Hypokalemia. Resolved Hyperlipidemia, continue home medication Chronic back pain, continue home medication History of asthma, continue budesonide formoterol. Albuterol will be given as needed. Allow natural , per patient and Lovenox for DVT prophylaxis Attestations Medical Necessity Statement*: Needs continued hospitalization secondary to recalcitrant nausea and vomiting Coding Level of Care Code Acute Human Performance Consultant for [facility] Diagnoses Dizziness R42 Nausea R11.0
--- NOTE | 2020-05-16 16:06 | PC.NURSE ---
Patient wasnt able to get ortho vitals at this time she wasn't feeling well.
[2020-05-16] MEDS: atorvastatin 40 mg Tablet 20 MG PO (22:18)
[2020-05-16] MEDS: famotidine 20 mg/2 mL INJ IVP (22:18)
[2020-05-16] MEDS: hyoscyamine ODT 0.125 mg Tablet PO (22:33)
[2020-05-17] VITALS (13 sets, daily range): BP systolic 119–162; BP diastolic 66–100; PULSE 71–117; RESP 14–18; TEMP 36.3–36.9; O2SAT 94–99
--- NOTE | 2020-05-17 05:00 | USR_ITS ---
PROCEDURE INFORMATION: Exam: US Abdomen, Limited; Right Upper Quadrant Exam date and time: 05/17/2020 6:29 AM Age: 75 years old Clinical indication: Vomiting TECHNIQUE: Imaging protocol: US abdomen. Real time ultrasound with image documentation. Limited exam focused on the right upper quadrant. COMPARISON: CT abdomen pelvis w con* [id number] 05/14/2020 7:35 AM FINDINGS: Liver: No focal hepatic mass. Gallbladder: No cholelithiasis, gallbladder wall edema, or pericholecystic fluid. Common bile duct: Normal caliber of the visualized common bile duct measuring 2 mm in diameter. Pancreas: Obscuration of the pancreas by bowel gas. Right kidney: Nonspecific 3 mm hyperechoic nodular lesion in the right kidney without associated acoustic shadowing. No hydronephrosis. Inferior vena cava: Unremarkable IVC. US/US gall bladder [id number] IMPRESSION: Nonspecific 3 mm hyperechoic nodular lesion in the right kidney without associated acoustic shadowing.
[2020-05-17 05:36] LABS: Basophils # 0.1 10^3/uL (0.0-0.1); Basophils % 0.7 %; Eosinophils # 0.2 10^3/uL (0.0-0.8); Eosinophils % 1.8 %; Hematocrit 45.6 % (37.0-47.0); Hemoglobin 15.4 g/dL (11.5-15.3); Lymphocytes # 3.3 10^3/uL (0.8-4.8); Lymphocytes % 34.6 %; Mean Corpuscular HGB Conc 33.8 g/dL (30.0-36.0); Mean Corpuscular Hemoglobin 29.3 pg (28.0-34.0); Mean Corpuscular Volume 86.9 fL (81-99); Mean Platelet Volume 10.2 fL (7.4-10.4); Monocytes % 10.5 %; Neutrophils # 4.97 10^3/uL (1.8-7.7); Neutrophils % 51.9 %; Nucleated Red Blood Cells % 0 %; Platelet Count 156 10^3/cmm (130-400); Red Blood Count 5.25 10^6/uL (4.1-5.3); Red Cell Distribution Width 11.9 % (12.1-15.1); White Blood Count 9.6 10^3/uL (4.0-10.0)
[2020-05-17 06:04] LABS: Alanine Aminotransferase 28 U/L (0-33); Albumin Level 3.9 g/dL (3.5-5.2); Alkaline Phosphatase 78 IU/L (35-105); Anion Gap 13.6 (5-19); Aspartate Amino Transferase 28 U/L (0-32); Blood Urea Nitrogen 12 mg/dL (8-23); Calcium 8.7 mg/dL (8.5-10.5); Carbon Dioxide 28 mmol/L (22-29); Chloride 99 mmol/L (98-107); Creatinine Clr Calc Pharmacy 65.0381; Globulin 2.5 g/dL (1.3-4.6); Glucose 89 mg/dL (65-115); Osmolality Calculated 283 mOsm/kg (285-295); Potassium 3.6 mmol/L (3.5-5.1); Sodium 137 mmol/L (136-145); Total Bilirubin 0.8 mg/dL (0.15-1.2); Total Protein 6.4 g/dL (6.6-8.7)
[2020-05-17] MEDS: sodium chloride 0.9% 1,000 ML 30 ML IV ×2 (08:03→09:43)
--- NOTE | 2020-05-17 08:12 | P.ANESASSM_ITS ---
Pre-Anesthetic Assessment Pre-Anesthetic Assessment: Height/Weight: Height 1.7 m Weight 77.111 kg Temp Pulse Resp BP Pulse Ox 98.4 F 73 18 162/84 97 05/17/20 07:59 05/17/20 07:59 05/17/20 07:59 05/17/20 07:59 05/17/20 07:59 Preop Diagnosis: Nausea and vomiting Proposed Procedure: Operation Date: 05/17/20 08:00 Proposed Procedures p EGD(Not Applicable) - Nguyễn Colmenares MD Was Beta Pranav taken within 24 hours: N/A Last intake: Intake Last Liquid Date 05/16/20 Last Liquid Time 18:00 Last Solid Date 05/15/20 Last Solid Time 18:00 Social: Social History: No alcohol and No tobacco Exam: Pre-Anes Outpt Exam: alert, oriented x 3, clear to auscultation bilaterally and regular rate & rhythm Airway: Submandibular: WNL Cervical ROM: WNL MP: 2 Dentition: Full Pulmonary: Pulmonary: Asthma Musc/skel: Musc/skel: Lower Back Pain and OA/DJD Comments: Chronic back and neck pain Anesthetic Plan: ASA status: 2 Anesthesia: MAC Risk of > 500 ml blood loss (7ml/kg in children): No Meds/Allergies Current Medications: Current Medications Generic Name Dose Route Start Last Admin Trade Name Freq PRN Reason Stop Dose Admin Acetaminophen 650 mg 05/15/20 14:37 05/15/20 22:43 Acetaminophen 32 5 Mg Tablet PO 650 mg Q6H PRN Administration MILD PAIN Atorvastatin Calci um 20 mg 05/13/20 20:00 05/16/20 22:18 Atorvastatin 40 Mg Tablet PO 20 mg DAILY@20 LAWANDA Administration Enoxaparin Sodium 40 mg 05/13/20 14:00 05/16/20 14:26 Enoxaparin 40 Mg /0.4 Ml Syringe SUBCUT 40 mg Q24H LAWANDA Administration Famotidine 20 mg 05/14/20 09:30 05/16/20 22:18 Famotidine 20 Mg /2 Ml Inj IVP 20 mg Q12H LAWANDA Administration Hyoscyamine 0.125 mg 05/14/20 08:48 05/16/20 22:33 Hyoscyamine Odt 0.125 Mg Tablet PO 0.125 mg TIDAC PRN Administration GI IRRITATION Sodium Chloride 1,000 mls @ 75 ml s/hr 05/14/20 14:30 05/17/20 01:46 Sodium Chloride 0.9% IV 75 mls/hr .[id number] LAWANDA Infusion Sodium Chloride 1,000 mls @ 30 ml s/hr 05/17/20 07:28 05/17/20 08:03 Sodium Chloride 0.9% IV 05/18/20 07:27 30 mls/hr .Q24H ONE Administration Lorazepam 0.5 mg 05/14/20 08:02 05/14/20 09:16 Lorazepam 2 Mg/M l Inj 1 Ml IVP 0.5 mg Q4H PRN Administration ANXIETY Methocarbamol 500 mg 05/15/20 15:08 05/16/20 11:40 Methocarbamol 50 0 Mg Tablet PO 500 mg QID PRN Administration MUSCLE SPASMS Morphine Sulfate 30 mg 05/13/20 12:48 05/16/20 18:48 Morphine Ir 15 M g Tablet PO 30 mg Q4H PRN Administration SEVERE PAIN Ondansetron HCl 4 mg 05/13/20 12:48 05/14/20 23:18 Ondansetron 2 Mg /Ml Sdv 2 Ml IVP 4 mg Q6H PRN Administration vomiting, or N/V if npo Pregabalin 75 mg 05/13/20 15:00 05/16/20 22:18 Pregabalin 75 Mg Capsule PO 75 mg QID@08,12,15,20 S CH Administration Promethazine HCl 25 mg 05/16/20 08:39 05/16/20 09:57 Promethazine 25 Mg/Ml Sdv 1 Ml IM 25 mg Q6H PRN Administration NAUSEA Fluticasone/Salmet ryanne 1 puff 05/13/20 20:00 05/16/20 21:01 Fluticasone-Salm eterol 250-50 Disk us INHALATION 1 puff BID.RESPIRATORY S CH Administration PFSH Anesthesia PFSH: Medical History Asthma Chronic back pain DJD (degenerative joint disease) Hyperlipidemia Surgical History History of back surgery History of knee joint replacement History of lumbar surgery History of neck surgery History of tonsillectomy History of total hysterectomy Family History Other CAD (coronary artery disease) Dementia Social History Smoking and tobacco status: never smoked Alcohol intake: never Substance/Drug Use: never Data Anesthesia CBC & Chem 7: 05/17/20 05:22 05/17/20 05:22 Other Labs: Laboratory Results - last 48 hr 05/16/20 05/16/20 05/17/20 04:32 04:32 05:22 WBC 14.4 H 9.6 RBC 4.94 5.25 Hgb 14.4 15.4 H Hct 44.1 45.6 MCV 89.3 86.9 MCH 29.1 29.3 MCHC 32.7 33.8 RDW 12.2 11.9 L Plt Count 166 156 MPV 10.7 H 10.2 Neut % (Auto) 63.3 51.9 Lymph % (Auto) 24.7 34.6 [place] % (Auto) 10.9 10.5 Eos % (Auto) 0.2 1.8 Baso % (Auto) 0.5 0.7 Neut # (Auto) 9.10 H 4.97 Lymph # (Auto) 3.6 3.3 [place] # (Auto) 1.6 H 1.0 H Eos # (Auto) 0.0 0.2 Baso # (Auto) 0.1 0.1 Nucleated RBC % (auto) 0 0 Nucleated RBCs # 0.0 0.0 Sodium 140 Potassium 3.8 Chloride 103 Carbon Dioxide 28 Anion Gap 12.8 BUN 13 Creatinine 0.8 GFR Calculation Not Reportable Glucose 94 Calculated Osmolality 290 Calcium 8.6 Magnesium 2.3 Total Bilirubin 0.8 AST 25 ALT 19 Alkaline Phosphatase 76 Total Protein 6.5 L Albumin 4.0 Globulin 2.5 05/17/20 05:22 WBC RBC Hgb Hct MCV MCH MCHC RDW Plt Count MPV Neut % (Auto) Lymph % (Auto) [place] % (Auto) Eos % (Auto) Baso % (Auto) Neut # (Auto) Lymph # (Auto) [place] # (Auto) Eos # (Auto) Baso # (Auto) Nucleated RBC % (auto) Nucleated RBCs # Sodium 137 Potassium 3.6 Chloride 99 Carbon Dioxide 28 Anion Gap 13.6 BUN 12 Creatinine 0.7 GFR Calculation Not Reportable Glucose 89 Calculated Osmolality 283 L Calcium 8.7 Magnesium Total Bilirubin 0.8 AST 28 ALT 28 Alkaline Phosphatase 78 Total Protein 6.4 L Albumin 3.9 Globulin 2.5 Cardiac Studies: No Data to Display
[2020-05-17] MEDS: ondansetron 2 mg/ML SDV 2 mL 4 MG IVP ×2 (08:55→13:23)
--- NOTE | 2020-05-17 09:00 | ANE.PACU2 ---
Inpatient post-anesthesia follow up: Airway intact: Yes Vital signs: Temperature 97.6 F Pulse Rate [Monito r] 75 Pulse Rate [Orthos tatic 142 Standing] Pulse Rate [Orthos tatic 116 Sitting] Pulse Rate [Orthos tatic Lying] 117 Pulse Rate 114 Respiratory Rate 16 Blood Pressure [Or thostatic 124/80 Standing] Blood Pressure [Or thostatic 122/70 Sitting] Blood Pressure [Or thostatic 139/73 Lying] Blood Pressure [Ri ght Arm] 155/71 Blood Pressure 155/96 Pulse Oximetry 99 Oxygen Delivery Me thod Nasal Cannula Oxygen Flow Rate 2 Fraction of Inspir ed Oxygen Hydration adequate: Yes Nausea and vomiting: No Pain level: 1 Mental status: Baseline
--- NOTE | 2020-05-17 09:02 | SUR.PHASEI ---
08:55 PATIENT MEDICATED FOR NAUSEA. RE-EVALUATED BY DOCTOR MENESES.
--- NOTE | 2020-05-17 09:17 | SUR.PHASEI ---
09:18 REPORT GIVEN TO ISABELLA BRICEÑO
--- NOTE | 2020-05-17 09:29 | PC.NURSE ---
Patient returned from surgery, denies nausea or pain, vitals stable as documented, discussed further plan of care, verbalized understanding.
[2020-05-17] MEDS: pregabalin 75 mg Capsule PO (11:10)
[2020-05-17] MEDS: hyoscyamine ODT 0.125 mg Tablet PO (11:11)
[2020-05-17] MEDS: acetaminophen 325 mg Tablet 650 MG PO (11:11)
[2020-05-17] MEDS: morphine IR 15 mg Tablet 30 MG PO (13:22)
--- NOTE | 2020-05-17 13:46 | P.DS_ITS ---
Discharge Providers Date of Admission: 05/14/20 16:18 Date of Discharge: May 17, 2020 Attending Provider at Admission: Cleveland Todd MD Attending Provider at Discharge: Francisco Han MD Consults: Surgery: Dr. Negro Primary Care Provider: Ac Collins MD Diagnoses at Discharge Discharge Diagnosis (1) Nausea: Status: Acute (2) Dizziness: Status: Acute (3) Acute gastritis: Status: Acute (4) Duodenitis: Status: Acute Reason for Visit Reason for Visit: N/V, DIZZINESS 30156 R42 R11.0 Hospital Course Hospital Course Dina Velarde is a 75 year old female who presents to the emergency department with complaints of dizziness. She reports that upon waking up this morning at 530, she tried to get out of bed and was significantly dizzy. She reported she got nauseous and threw up 3 or 4 times. She reports this happened to her about a year ago and lasted for several hours and then went away. She denies any history of chronic dizziness. reports no issues with unilateral weakness, speech issues, or cognitive issues. Patient denies any abdominal pain. She denies any diarrhea or vomiting. She reports no new medications. She recently went off her amitriptyline. She denies fevers, history of Covid, exposure to Covid. No recent falls. She has had a little bit of dysuria recently. Patient was admitted for evaluation of dizziness which was making her unable to ambulate. Various etiologies of dizziness were ruled out including posterior circulation stroke with a negative CTA head and neck and MRI brain. Eventually her dizziness abated. During hospitalization patient started complaining of epigastric abdominal pain along with nausea and vomiting with few episodes of diarrhea. Infectious source including stool for antigen, C. difficile were negative. CT abdomen pelvis was done which showed slight induration involving ascending and transverse colon noted possibly because of colitis. Because patient persisted to have symptoms surgery was consulted and she underwent endoscopy on May 17. Endoscopy revealed gastritis and duodenitis along with bile acid reflux disease. Patient was started on Protonix and Carafate with meals. Patient symptoms are most likely because of chronic morphine use. H. pylori MARGARITO was done and results are awaited. Patient is advised to follow-up with surgery next 2 weeks. Various etiologies which were ruled out along with possibility of causes of patient having symptoms were discussed in detail with at bedside. They both verbalized understanding. They were also explained to take soft/GI bland diet for next 1 week and advance to regular diet gradually. She was advised to take small frequent meals. She is advised to take Protonix and Carafate as directed. She was also advised to make sure that she is either sitting up or is moving around for at least 30 to 45 minutes after having her meals. During examination on the day of discharge patient had come back from EGD and had her meal. She states she probably ate a little more than she should and because of that she is having mild nausea and epigastric discomfort. Patient requested multiple times to be discharged as she states she misses being at home. Patient was advised to make sure that she maintains her hydration at home with at least 2 to 3 L of fluid daily. She is also advised to come back to ER if she is not able to maintain her hydration. Physical Exam Narrative: EXAM NARRATIVE: General exam conversant female, no distress Neck is supple no lymphadenopathy thyromegaly Cardiovascular slight tachycardia, no murmur Lungs clear no wheezing or crackles Abdomen no abdominal tenderness Extremities no cyanosis clubbing or edema, cap refill brisk less than 2 seconds Skin no rash Neuro no focal deficits. Discharge Data Data Completed and Pending: Completed Studies During Hospitalization Category Date Time Status CT abdomen pelvis w con* [id number] Rout ine Cat Scan 05/14/20 06:[address] angio headneck * [id number] Urge nt Cat Scan 05/13/20 10:[address] head wo con* 7 [id number] Stat Cat Scan 05/13/20 08:08 Completed XR chest 1V jim ble [id number] Stat Exams 05/13/20 07:49 Completed MR head wo con* 7 [id number] Routine MRI 05/13/20 12:40 Completed US gall bladder 7 [id number] Routine Ultrasound 05/17/20 05:00 Completed Pending at discharge Category Date Time Status H. Pylori / MARGARITO T est Stat Lab 05/17/20 08:30 Ordered Labs from last 24 hours 05/17/20 05/17/20 05:22 05:22 WBC 9.6 RBC 5.25 Hgb 15.4 H Hct 45.6 MCV 86.9 MCH 29.3 MCHC 33.8 RDW 11.9 L Plt Count 156 MPV 10.2 Neut % (Auto) 51.9 Lymph % (Auto) 34.6 [place] % (Auto) 10.5 Eos % (Auto) 1.8 Baso % (Auto) 0.7 Neut # (Auto) 4.97 Lymph # (Auto) 3.3 [place] # (Auto) 1.0 H Eos # (Auto) 0.2 Baso # (Auto) 0.1 Nucleated RBC % (a uto) 0 Nucleated RBCs # 0.0 Sodium 137 Potassium 3.6 Chloride 99 Carbon Dioxide 28 Anion Gap 13.6 BUN 12 Creatinine 0.7 GFR Calculation Not Reportable Glucose 89 Calculated Osmolal ity 283 L Calcium 8.7 Total Bilirubin 0.8 AST 28 ALT 28 Alkaline Phosphata se 78 Total Protein 6.4 L Albumin 3.9 Globulin 2.5 Vitals: Last Vital Signs Temp 97.8 F 05/17/20 12:00 Pulse 71 05/17/20 12:00 Resp 16 05/17/20 13:22 BP 129/73 05/17/20 12:00 Pulse Ox 99 05/17/20 11:24 Discharge Plan Discharge Patient Disposition: Home Condition: Stable Prescriptions: New sucralfate 100 mg/mL Suspension 1 g PO AC&BEDTIME 14 Days Qty: 20 RF: 1 pantoprazole 40 mg Tablet,Delayed Release (Dr/Ec) 40 mg PO BID 14 Days Qty: 28 RF: 0 Zofran 4 mg tablet 4 mg PO Q8H PRN (Reason: nausea and vomiting) 4 Days Qty: 20 RF: 0 promethazine 12.5 mg tablet 6.25 mg PO Q6H PRN (Reason: nausea and vomiting) Qty: 10 RF: 0 Motion Relief (meclizine) 25 mg tablet 12.5 mg PO BID PRN (Reason: dizziness) Qty: 10 RF: 0 Continued dicyclomine 10 mg capsule 10 mg PO DAILY PRN (Reason: stomach cramps) RF: 0 metaxalone [Skelaxin] 800 mg tablet 800 mg PO TID@,12,20 RF: 0 hyoscyamine sulfate [Levsin] 0.125 mg tablet 0.125 mg PO QID@08,12,15,20 RF: 0 ezetimibe [Zetia] 10 mg tablet 10 mg PO DAILY@20 RF: 0 simvastatin [Zocor] 40 mg tablet 40 mg PO DAILY@20 RF: 0 budesonide-formoterol [Symbicort] 80-4.5 mcg/actuation HFA aerosol inhaler 2 puff INHALATION BID PRN (Reason: Shortness Of Breath) RF: 0 morphine 30 mg tablet 30 - 60 mg PO Q4H PRN (Reason: Pain) RF: 0 Lyrica 75 mg Capsule 75 mg PO QID@08,12,15,20 RF: 0 Discharge Orders: Discharge Order (Routine); Ordered 05/17/20 Ordered By: Francisco Han Referrals: Nguyễn Colmenares MD [Physician] - (RTC in 2 weeks ) Ac Collins MD [Primary Care Provider] - 2 weeks Discharge Diet: GI Soft Discharge Activity: Resume usual activity Activity Restrictions/Additional Instructions: Please take soft/bland/brat diet for next 1 week and then advance gradually. Please take Protonix and Carafate as directed. You can take Zofran as needed for not more than 3 times a day for nausea along with promethazine alternatively. Please follow-up with Dr. Colmenares in his clinic in next 2 weeks. Please make sure that you maintain your hydration. Drink at least 2 to 3 L of fluid a day. That should also include drink like Gatorade to maintain your electrolytes.. Discharge Attestations Time Spent in Discharge Care*: greater than 30 min Specific Discharge Activities: educating patient, educating and/or supporting family/caregiver, discussing with pcp/other providers, discussing with case sealer/social workers/dc planners, documenting/other paperwork and evaluating patient/reviewing data Status at Discharge: Cognitive status at discharge: cognitively intact , Behavioral status at discharge: cooperative , Functional status at discharge: independent ambulation Overall status at discharge: patient is progressing back to baseline Quality Metrics Clinical Quality Measures During this hospital stay, did patient experience: None Coding Level of Care Code Acute Speech Teacher for [place] Fwd Diagnoses Nausea R11.0 Dizziness R42 Acute gastritis K29.00 Duodenitis K29.80
[2020-05-17] MEDS: sucralfate 1 gm/10 mL Oral Liq UDC PO (14:13)
[2020-05-17] MEDS: pantoprazole DR 40 mg Tablet PO (14:14)
--- NOTE | 2020-05-17 14:26 | PC.NURSE ---
Patient vomited X1, PRN zofran given, Physician aware and in room to talk to patient and spouse, patient requesting discharge, Dr. Han new orders to discharge but first give protonix and carafate, given see MAR for further details, discussed discharge paperwork and prescriptions sent to pharmacy, denies further questions or concerns.
[2020-05-19 07:00] LABS: H. Pylori / CLO Test Negative
== END 2020-05-17 14:28 | disposition home or self-care (01) | DRG 392 ==
LOC: ER 07:55 → MEDSURG 11:46
PROVIDERS: Surgery; Admitting Provider Internal Medicine; Emergency Provider Family Medicine; PCP Family Medicine; Visit Provider Student in an Organized Health Care Education/Training Program
PROC: 0DJ08ZZ Inspection of Upper Intestinal Tract, Via Natural or Artificial Opening Endoscopic (ICD-10-PCS; CPT 43235; principal; 2020-05-17 08:00)
DX: K29.00 Acute gastritis without bleeding (principal); K29.80 Duodenitis without bleeding; R19.7 Diarrhea, unspecified; E87.6 Hypokalemia; E78.5 Hyperlipidemia, unspecified; G89.29 Other chronic pain; M54.9 Dorsalgia, unspecified; J45.909 Unspecified asthma, uncomplicated; M19.90 Unspecified osteoarthritis, unspecified site
CPT/HCPCS: 12345; 36415; 43239; 70450; 70496; 70498; 70551; 71045; 74177; 76705; 80053; 81001; 83690; 83735; 84443; 85025; 87077; 87426; 87493; 87506; 93005; 94640; 96372; 99283; G0378; J0360; J1200; J1650; J2060; J2405; J2550; J2704; J2930; J3475; J3480; J3490; J7030; J7040; Q9967

== ENCOUNTER 2020-06-27 08:19 | Outpatient (CLI) | payer OTHER, MEDICARE, SELFPAY ==
--- NOTE | 2020-06-27 09:34 | NM_ITS ---
WS: [id number] NUCLEAR MEDICINE HIDA SCAN CLINICAL INFORMATION: R10.9 - Unspecified abdominal pain TECHNIQUE: Following intravenous administration of 7.9 mCi of technetium 99m mebrofenin, images of th e abdomen were obtained over the course of 60 minutes. Next, gallbladder ejection fraction was determ ined by obtaining preprandial and one-hour postprandial images of the gallbladder following oral parmjit stion of Ensure. COMPARISON: None. FINDINGS: Normal hepatic uptake at 5 minutes. Gallbladder is visualized by 20 minutes. No evidence of acute cho lecystitis. Normal small bowel and common bile duct activity. No evidence of choledocholithiasis. Gallbladder ejection fraction 97% within normal limits. No evidence of chronic cholecystitis. NM/NM hepatobiliary w phar* [id number] IMPRESSION: 1. No evidence of acute or chronic cholecystitis. 2. Gallbladder ejection fraction 97% within normal limits.
== END 2020-06-27 08:20 | disposition home or self-care (01) ==
PROVIDERS: PCP Family Medicine; Visit Provider Surgery
DX: R10.9 Unspecified abdominal pain (principal)
CPT/HCPCS: 78227; A9537

== ENCOUNTER 2020-07-10 06:00 | Outpatient (RCR) | payer OTHER, MEDICARE, SELFPAY | END 2020-07-16 23:59 | disposition home or self-care (01) | LOC: SPT 06:00 | PROVIDERS: PCP Family Medicine; Referring Provider Family Medicine; Visit Provider Family Medicine | DX: R42 Dizziness and giddiness (principal) | CPT/HCPCS: 97110; 97162 ==

== ENCOUNTER 2020-07-11 13:34 | Outpatient (CLI) | payer OTHER, MEDICARE, SELFPAY ==
--- NOTE | 2020-07-11 13:36 | MR_ITS ---
WS: [id number] MRI CERVICAL SPINE NONCONTRAST HISTORY: C6 RADICULOPATHY COMPARISON: 05/27/2015 Technique: Multiplanar, multisequence noncontrast imaging of the cervical spine. Mild straightening of the normal cervical lordosis. Prior anterior cervical fusion from C4 through C6 . Interbody spacers at C4-5 and C5-6. Small amount of increased signal in the C2 vertebral body is st able. No fractures. Signal within the cord is normal. There is disc desiccation throughout the cervical spine. Moderate s ize vertebral body osteophytes with hypertrophy along the posterior longitudinal ligament centered at C5-6 encroaching upon the ventral thecal sac. Quality of the ventral cord. Similar findings to the p rior study. Craniocervical junction, C1 and C2 relationship, odontoid process and soft tissues are normal. C2-C3: Central disc protrusion and small foraminal osteophytes. Mild LEFT foraminal narrowing. C3-C4: Diffuse annular disc bulging and osteophytic ridging. Mild central with bilateral foraminal st enosis, greater on the RIGHT. C4-C5: Mild osteophytic ridging. No significant stenosis. C5-C6: Large osteophytes extend posteriorly along the ventral thecal sac and cord. Moderate central s tenosis. Severe LEFT and moderate RIGHT foraminal stenosis. Mild progression of stenosis bilaterally. C6-C7: Mild osteophytic ridging and a central disc protrusion. Mild central stenosis with moderate bi lateral foraminal stenosis. Foraminal stenosis due to osteophytes. C7-T1: Normal. Paraspinal soft tissue are normal. MR/MR cervical spin wo con* [id number] IMPRESSION: 1. Prior anterior cervical fusion with interbody spacers from C4 through C6 is unchanged. 2. Large hypertrophic osteophytes and posterior longitudinal ligament hypertro phy at C5-6 contacting the ventral thecal sac and contacting the cord. Very sim ilar to the prior study. 3. Moderate central with severe LEFT and moderate RIGHT foraminal stenosis at C5-6. Stenosis predominantly due to the large hypertrophic osteophyte and poste rior longitudinal ligament hypertrophy. 4. Mild central with moderate bilateral foraminal stenosis at C6-7, unchanged. 5. Mild central and bilateral foraminal stenosis at C3-4, greater on the RIGHT .
== END 2020-07-11 13:35 | disposition home or self-care (01) ==
LOC: RADSHAW 13:35
PROVIDERS: PCP Family Medicine; Visit Provider Family Medicine
DX: M54.12 Radiculopathy, cervical region (principal); M48.02 Spinal stenosis, cervical region; M43.22 Fusion of spine, cervical region; M25.78 Osteophyte, vertebrae
CPT/HCPCS: 72141

== ENCOUNTER 2020-07-28 09:34 | Emergency (ER) | payer OTHER, MEDICARE, SELFPAY ==
[2020-07-28 09:49] VITALS: BP 177/85; PULSE 126; RESP 15; TEMP 36.5; O2SAT 99; BMI 25.5
--- NOTE | 2020-07-28 09:57 | CT_ITS ---
WS: [id number] CT HEAD NONCONTRAST HISTORY: dizziness, vomiting TECHNIQUE: Contiguous axial imaging performed through the brain in 2.5 mm imaging. Bone and soft tiss ue windows. Sagittal and coronal reformats reviewed. All CT scans at [facility] use at ast one of these dose optimization techniques: automated exposure control; mA and/or kV adjustment pe r patient size (includes targeted exams where dose is matched to clinical indication); or iterative r econstruction. DLP: 982.25 mGy.cm COMPARISON: 05/13/2020 No acute intracranial hemorrhage, midline shift or mass effect. Mild atrophy and mild chronic microvascular ischemic disease. No prior infarcts. Bilateral basal gang kristal calcifications. Ventricles: Normal size with no hydrocephalus. Paranasal sinuses: As visualized are clear. Mastoid air cells: Well pneumatized. Calvarium and scalp: Skull is intact with no soft tissue edema or swelling. Severe degenerative changes and hypertrophic bone formation involving the tip of the odontoid. CT/CT head wo con* [id number] IMPRESSION: 1. No acute intracranial hemorrhage or edema. 2. Mild atrophy and mild chronic microvascular ischemic disease.
--- NOTE | 2020-07-28 09:57 | XRR_ITS ---
PROCEDURE INFORMATION: Exam: XR Chest Exam date and time: 07/28/2020 10:03 AM Age: 75 years old Clinical indication: Cough and dyspnea; Patient HX: N/v/diarrhea; Additional info: Dyspnea/cough TECHNIQUE: Imaging protocol: XR of the chest. Views: 1 view. COMPARISON: CR XR chest 1V portable [id number] 05/13/2020 7:58 AM FINDINGS: Lungs: Emphysematous change and interstitial prominence. Pleural spaces: No pleural effusion. Heart/Mediastinum: Normal configuration of the heart. Bones/joints: Osteopenia, degenerative change, and cervical spine fusion. When correlating with the previous study, no significant interval changes are present. XR/XR chest 1V portable [id number] IMPRESSION: Emphysematous change and interstitial prominence.
--- NOTE | 2020-07-28 09:58 | CT_ITS ---
WS: [id number] CT ABDOMEN AND PELVIS WITH CONTRAST HISTORY: Abdominal pain with nausea and vomiting. TECHNIQUE: Imaging performed of the abdomen and pelvis with IV contrast. Single phase imaging of the abdomen. Coronal and sagittal reformats are submitted. All CT scans at [facility] use at least one of these dose optimization techniques: automated exposure control; mA and/or kV adjustment per patient size (includes targeted exams where dose is matched to clinical indication); or iterativ e reconstruction. IV CONTRAST: Omnipaque 300; 95 mL IV. Oral contrast: No DLP: 1435.24 mGy.cm COMPARISON: 05/14/2020 Lower thorax: Lung bases are clear. Heart is normal size. Small hiatal hernia. Liver/biliary system: Normal size liver. Mild hepatic steatosis with sparing along the falciform liga ment. No bile duct dilatation or mass. Gallbladder: Gallbladder is contracted. Pancreas: Normal. Spleen: Normal. Adrenal glands: Normal. Right kidney: Normal size kidney. Cortical hypodensities in the mid kidney. No change since the prior exam. RIGHT renal pelvis is slightly more prominent than the prior study from 05/14/2020. No calcific ations within the aorta. Left kidney: Normal. Aorta: Mild atherosclerosis with no aneurysm. Lymphadenopathy: None. Free fluid: None. GI tract: The appendix is not definitely identified. The cecum is deep within the pelvis. There is so me very mild edema within the cecum. As compared to the prior study there is less mucosal edema and w all thickening. No obstruction. No significant diverticulitis. Abdominal wall: Unremarkable abdominal wall. No hernia. Pelvis: No free fluid in the pelvis. Prior hysterectomy. Bones: Diffuse osteopenia. CT/CT abdomen pelvis w con* [id number] IMPRESSION: 1. Very mild colitis within the cecum. The appendix is not visualized. 2. No ascites or free air. 3. Mildly contracted gallbladder may be due to nonfasting. 4. No renal obstruction. RIGHT renal pelvis is slightly more prominent than on the prior study. No calcification or perinephric stranding. Cannot exclude a r ecently passed stone.
--- NOTE | 2020-07-28 10:05 | ED_ITS ---
HPI - Nausea/Vomiting/Diarrhea General: Chief complaint: Nausea/Vomiting/Diarrhea Stated complaint: N/V/D Time Seen by Provider: 07/28/20 09:48 History of Present Illness: HPI Narrative: 5-year-old female presents emergency room complaining nausea vomiting diarrhea that began 3 days ago severe weakness. She had some dizziness as well on Tuesday no fever she has persistent nausea and vomiting since then. He tried some Phenergan suppositories with no results. MD elicited complaint: nausea, vomiting and diarrhea Onset (ago): day(s) Description of vomiting: food contents and bilious Description of diarrhea: lose Associated nausea: Yes Associated abdominal pain: Yes Location of pain: Diffuse Pain consistency: constant Severity: moderate Quality: cramping Exacerbating factors: none Relieving factors: none Associated symtoms: Reports bloating, dizziness, fatigue, fevers/chills, anorexia, malaise, myalgias and nausea; Denies anxiety, change in vision, chest pain, cough, diaphoresis, decreased urine output, dysuria, epistaxis, fecal incontinence, headache(s), numbness, palpitations, rash, short of breath, syncope, tenesmus, tinnitus or weakness Treatment prior to arrival: other (Promethazine suppository) Review of Systems Const: Reports: fatigue and malaise; Denies: diaphoresis Eyes: Denies: change in vision ENMT: Denies: tinnitus or epistaxis Card: Denies: chest pain, palpitations or syncope GI: Reports: nausea and bloating; Denies: fecal incontinence Neuro: Denies: headache(s) Psych: Denies: anxiety PFSH ED PFSH: Medical History Acute gastritis Asthma Cervical disc disease Chronic back pain Depression DJD (degenerative joint disease) Duodenitis Hernia History of kidney stones Hyperlipidemia Hypertension Nausea Surgical History History of back surgery History of knee joint replacement History of lumbar surgery History of neck surgery History of tonsillectomy History of total hysterectomy Family History Other CAD (coronary artery disease) Dementia Social History Smoking and tobacco status: never smoked Alcohol intake: never Physical Exam Const: COMMON NORMALS: no acute distress GENERAL APPEARANCE: cooperative and comfortable ORIENTATION/CONSCIOUSNESS: Yes awake, Yes oriented to person, Yes oriented to place and Yes oriented to time HENMT: COMMON NORMALS: normocephalic, atraumatic and hearing grossly normal bilaterally HEAD & SCALP: normocephalic and atraumatic Neck/C-Spine: COMMON NORMALS: no JVD Resp: COMMON NORMALS: normal respiratory effort, No retractions, No use of accessory muscles and clear to auscultation bilaterally AUSCULTATION: clear to auscultation bilaterally Cardio: COMMON NORMALS: no JVD, regular rate, regular rhythm and No murmurs present (Cardio) RATE: regular rate RHYTHM: regular rhythm GI: COMMON NORMALS: Soft to palpation and No hepatosplenomegaly present AUSCULTATION: Yes normoactive bowel sounds PALPATION: Yes Soft to palpation, No Tenderness to palpation present (GI), No Guarding due to palpation present (GI) and Yes No hepatosplenomegaly present Extremity: COMMON NORMALS: normal to inspection, capillary refill normal, no clubbing, cyanosis or edema, no calf tenderness and no pedal edema Neuro: SENSORIUM/ORIENTATION: Yes oriented to person, Yes oriented to place and Yes oriented to time Skin: COMMON NORMALS: no rashes or lesions noted GENERAL SKIN EXAM: no rashes or lesions noted Course Vital Signs: Vital signs: Vital Signs Temperature 97.7 F 07/28/20 09:49 Pulse Rate 100 07/28/20 13:10 Respiratory Rate 12 07/28/20 13:10 Blood Pressure 132/84 07/28/20 13:10 Pulse Oximetry 99 07/28/20 13:10 MDM - Nausea/Vomiting/Diarrhea MDM Narrative: Medical decision making narrative: Patient is hyperkalemic has a pretty significant white count. She is given p.o. potassium which she tolerated well will discharge home with oral potassium. She is feeling better and is okay with being treated as an outpatient will start on p.o. antibiotics also give her a couple days of p.o. potassium also gave her some Zofran. She is unsure when her last colonoscopy was will have her follow-up with her primary care doctor if she has any worsening symptoms return. Lab Data: Labs: Lab Results 07/28/20 07/28/20 07/28/20 Range/Units 10:00 10:00 10:00 WBC 19.9 H (4.0-10.0) 10^3/ uL RBC 5.49 H (4.1-5.3) 10^6/u L Hgb 16.1 H (11.5-15.3) g/dL Hct 46.5 (37.0-47.0) % MCV 84.7 (81-99) fL MCH 29.3 (28.0-34.0) pg MCHC 34.6 (30.0-36.0) g/dL RDW 11.9 L (12.1-15.1) % Plt Count 243 (130-400) 10^3/c mm MPV 10.3 (7.4-10.4) fL Neut % (Auto) 78.1 % Lymph % (Auto) 11.5 % [place] % (Auto) 9.6 % Eos % (Auto) 0.0 % Baso % (Auto) 0.2 % Neut # (Auto) 15.57 H (1.8-7.7) 10^3/u L Lymph # (Auto) 2.3 (0.8-4.8) 10^3/u L [place] # (Auto) 1.9 H (0.2-0.9) 10^3/u L Eos # (Auto) 0.0 (0.0-0.8) 10^3/u L Baso # (Auto) 0.0 (0.0-0.1) 10^3/u L Nucleated RBC % (a uto) 0 % Nucleated RBCs # 0.0 /100WBC Sodium 138 (136-145) mmol/L Potassium 2.7 L* (3.5-5.1) mmol/L Chloride 99 (98-107) mmol/L Carbon Dioxide 23 (22-29) mmol/L Anion Gap 18.7 (5-19) BUN 22 (8-23) mg/dL Creatinine 0.7 (0.5-0.9) mg/dL GFR Calculation Not Reportable Glucose 135 H (65-115) mg/dL Calculated Osmolal ity 291 (285-295) mOsm/k g Lactic Acid 1.6 (0.5-2.2) mmol/L Calcium 9.2 (8.5-10.5) mg/dL Magnesium 2.1 (1.7-2.3) mg/dL Total Bilirubin 1.2 (0.15-1.2) mg/dL AST 22 (0-32) U/L ALT 18 (0-33) U/L Alkaline Phosphata se 92 (35-105) IU/L Creatine Kinase 380 H* (26-192) U/L Total Protein 7.5 (6.6-8.7) g/dL Albumin 4.7 (3.5-5.2) g/dL Globulin 2.8 (1.3-4.6) g/dL Lipase 93 H (13-60) U/L Urine Color (Yellow) Urine Appearance (CLEAR) Urine pH (5-7) Ur Specific Gravit y (1.005-1.030) Urine Protein (Negative) Urine Glucose (UA) (Normal) Urine Ketones (Negative) Urine Blood (Negative) Urine Nitrate (Negative) Urine Bilirubin (Negative) Urine Urobilinogen (Negative) mg/dL Ur Leukocyte Bailey ase (Negative) Urine RBC (0-2) /hpf Urine WBC (0-5) /hpf Ur Squamous Epith Cells (0-5) /hpf Amorphous Sediment Urine Bacteria (NONE) /hpf Urine Mucus /hpf Serum Ketones (Negative) 07/28/20 07/28/20 Range/Units 10:00 10:55 WBC (4.0-10.0) 10^3/ uL RBC (4.1-5.3) 10^6/u L Hgb (11.5-15.3) g/dL Hct (37.0-47.0) % MCV (81-99) fL MCH (28.0-34.0) pg MCHC (30.0-36.0) g/dL RDW (12.1-15.1) % Plt Count (130-400) 10^3/c mm MPV (7.4-10.4) fL Neut % (Auto) % Lymph % (Auto) % [place] % (Auto) % Eos % (Auto) % Baso % (Auto) % Neut # (Auto) (1.8-7.7) 10^3/u L Lymph # (Auto) (0.8-4.8) 10^3/u L [place] # (Auto) (0.2-0.9) 10^3/u L Eos # (Auto) (0.0-0.8) 10^3/u L Baso # (Auto) (0.0-0.1) 10^3/u L Nucleated RBC % (a uto) % Nucleated RBCs # /100WBC Sodium (136-145) mmol/L Potassium (3.5-5.1) mmol/L Chloride (98-107) mmol/L Carbon Dioxide (22-29) mmol/L Anion Gap (5-19) BUN (8-23) mg/dL Creatinine (0.5-0.9) mg/dL GFR Calculation Glucose (65-115) mg/dL Calculated Osmolal ity (285-295) mOsm/k g Lactic Acid (0.5-2.2) mmol/L Calcium (8.5-10.5) mg/dL Magnesium (1.7-2.3) mg/dL Total Bilirubin (0.15-1.2) mg/dL AST (0-32) U/L ALT (0-33) U/L Alkaline Phosphata se (35-105) IU/L Creatine Kinase (26-192) U/L Total Protein (6.6-8.7) g/dL Albumin (3.5-5.2) g/dL Globulin (1.3-4.6) g/dL Lipase (13-60) U/L Urine Color Yellow (Yellow) Urine Appearance Sl hazy (CLEAR) Urine pH 6.5 (5-7) Ur Specific Gravit y 1.015 (1.005-1.030) Urine Protein 3+ H (Negative) Urine Glucose (UA) Norm (Normal) Urine Ketones 1+ H (Negative) Urine Blood 3+ H (Negative) Urine Nitrate Negative (Negative) Urine Bilirubin Neg (Negative) Urine Urobilinogen Norm (Negative) mg/dL Ur Leukocyte Bailey ase Negative (Negative) Urine RBC 5-10 H (0-2) /hpf Urine WBC 0-4 H (0-5) /hpf Ur Squamous Epith Cells 0-4 H (0-5) /hpf Amorphous Sediment Not Reportable Urine Bacteria 1+ H (NONE) /hpf Urine Mucus Trace /hpf Serum Ketones Negative (Negative) Discharge Plan Discharge Patient Disposition: Home Clinical Impression: Colitis, Hypokalemia Condition: Stable Prescriptions: New Cipro 500 mg tablet 500 mg PO BID 7 Days Qty: 14 RF: 0 metronidazole 500 mg tablet 500 mg PO BID 7 Days Qty: 14 RF: 0 Zofran 4 mg tablet 4 mg PO Q6H PRN (Reason: nausea and vomiting) Qty: 15 RF: 0 potassium chloride 20 mEq tablet,ER particles/crystals 20 meq PO DAILY Qty: 3 RF: 0 No Action dicyclomine 10 mg capsule 10 mg PO DAILY PRN (Reason: stomach cramps) RF: 0 metaxalone [Skelaxin] 800 mg tablet 800 mg PO TID@08,12,20 RF: 0 hyoscyamine sulfate [Levsin] 0.125 mg tablet 0.125 mg PO QID@08,12,15,20 RF: 0 ezetimibe [Zetia] 10 mg tablet 10 mg PO DAILY@20 RF: 0 simvastatin [Zocor] 40 mg tablet 40 mg PO DAILY@20 RF: 0 morphine 30 mg tablet 30 - 60 mg PO Q4H PRN (Reason: Pain) RF: 0 pregabalin [Lyrica] 75 mg Capsule 75 mg PO QID@08,12,15,20 RF: 0 promethazine 12.5 mg tablet 6.25 mg PO Q6H PRN (Reason: nausea and vomiting) Qty: 10 RF: 0 meclizine [Motion Relief (meclizine)] 25 mg tablet 12.5 mg PO BID PRN (Reason: dizziness) Qty: 10 RF: 0 Advair Diskus 250-50 mcg/dose Blister With Device 1 inh INHALATION BID RF: 0 amlodipine 5 mg Tablet 5 mg PO DAILY RF: 0 albuterol sulfate 90 mcg/actuation Hfa Aerosol Inhaler 2 puff INHALATION Q4H PRN (Reason: Shortness Of Breath) RF: 0 Discharge Orders: Discharge ED (Routine); Ordered 07/28/20 Ordered By: Derrell Segura Referrals: Ac Collins MD [Primary Care Provider] - Discharge Diet: Clear Liquid Discharge Activity: Increase activity as tolerated Patient Instructions: Opioid Safety Activity Restrictions/Additional Instructions: Her liquid diet for 24 hours and advance as tolerated. Follow-up with your primary care doctor on abnormality seen in the colon on CT within the week. Coding Level of Care Code ED [facility] for Roseline Carpenter
[2020-07-28] MEDS: sodium chloride 0.9% 1,000 ML 999 ML IV (10:18)
[2020-07-28] MEDS: ondansetron 2 mg/ML SDV 2 mL 4 MG IVP (10:18)
[2020-07-28 10:29] LABS: Basophils % 0.2 %; Hematocrit 46.5 % (37.0-47.0); Hemoglobin 16.1 g/dL (11.5-15.3); Lymphocytes # 2.3 10^3/uL (0.8-4.8); Lymphocytes % 11.5 %; Mean Corpuscular HGB Conc 34.6 g/dL (30.0-36.0); Mean Corpuscular Hemoglobin 29.3 pg (28.0-34.0); Mean Corpuscular Volume 84.7 fL (81-99); Mean Platelet Volume 10.3 fL (7.4-10.4); Monocytes # 1.9 10^3/uL (0.2-0.9); Monocytes % 9.6 %; Neutrophils # 15.57 10^3/uL (1.8-7.7); Neutrophils % 78.1 %; Nucleated Red Blood Cells % 0 %; Platelet Count 243 10^3/cmm (130-400); Red Blood Count 5.49 10^6/uL (4.1-5.3); Red Cell Distribution Width 11.9 % (12.1-15.1); White Blood Count 19.9 10^3/uL (4.0-10.0)
[2020-07-28 10:36] LABS: Alanine Aminotransferase 18 U/L (0-33); Albumin Level 4.7 g/dL (3.5-5.2); Alkaline Phosphatase 92 IU/L (35-105); Anion Gap 18.7 (5-19); Aspartate Amino Transferase 22 U/L (0-32); Blood Urea Nitrogen 22 mg/dL (8-23); Calcium 9.2 mg/dL (8.5-10.5); Carbon Dioxide 23 mmol/L (22-29); Chloride 99 mmol/L (98-107); Globulin 2.8 g/dL (1.3-4.6); Glucose 135 mg/dL (65-115); Lipase 93 U/L (13-60); Magnesium 2.1 mg/dL (1.7-2.3); Osmolality Calculated 291 mOsm/kg (285-295); Sodium 138 mmol/L (136-145); Total Bilirubin 1.2 mg/dL (0.15-1.2); Total Protein 7.5 g/dL (6.6-8.7)
[2020-07-28 10:38] LABS: Lactic Sepsis W/Reflex 1.6 mmol/L (0.5-2.2)
[2020-07-28 10:39] LABS: Creatine Phosphokinase 380 U/L (26-192); Potassium 2.7 mmol/L (3.5-5.1)
[2020-07-28 10:40] VITALS: BP 156/86; PULSE 0; PULSE 83; RESP 17; O2SAT 100
[2020-07-28 10:53] LABS: Ketone (Acetest) Serum Negative (Negative)
[2020-07-28 11:54] VITALS: BP 169/91; PULSE 83; RESP 12; O2SAT 100
[2020-07-28 12:00] VITALS: BP 151/85; PULSE 103; RESP 22; O2SAT 98
[2020-07-28] MEDS: potassium chloride oral liq 20 mEq/15 mL UDC 40 MEQ PO (12:00)
[2020-07-28] MEDS: iohexol 300 mg/mL 100 mL Btl IV (12:05)
[2020-07-28 12:58] LABS: Blood Urine 3+ (Negative); Glucose Urine UA Norm (Normal); Ketones Urine 1+ (Negative); Protein Urine 3+ (Negative); Specific Gravity, Urine 1.015 (1.005-1.030); Urine Appearance SL Hazy (CLEAR); Urine Color Yellow (Yellow); pH Urine 6.5 (5-7)
[2020-07-28 12:59] LABS: Add Urine Microscopic? YES; Bilirubin Urine Neg (Negative); Leukocyte Esterase Urine Negative (Negative); Nitrate Urine Negative (Negative); Urobilinogen Urine Norm (Negative)
[2020-07-28 13:00] VITALS: BP 132/84; PULSE 100; RESP 12; O2SAT 99
[2020-07-28 13:05] LABS: Squamous Epithelial Cell Urine 0-4 /hpf (0-5); WBC Urine 0-4 /hpf (0-5)
[2020-07-28 13:06] LABS: Add Urine Culture? No; Bacteria Urine 1+ /hpf; Mucus Urine TRACE /hpf
[2020-07-28 13:10] VITALS: BP 132/84; PULSE 100; RESP 12; O2SAT 99
== END 2020-07-28 13:35 | disposition home or self-care (01) ==
PROVIDERS: Emergency Provider Family Medicine; PCP Family Medicine
DX: K52.9 Noninfective gastroenteritis and colitis, unspecified (principal); E87.6 Hypokalemia; E78.5 Hyperlipidemia, unspecified; I10 Essential (primary) hypertension
CPT/HCPCS: 70450; 71045; 74177; 80053; 81001; 82009; 82550; 83605; 83690; 83735; 85025; 96361; 96374; 99284; J2405; J7030; Q9967

== ENCOUNTER 2020-08-05 15:18 | Outpatient (CLI) | payer OTHER, MEDICARE, SELFPAY | END 2020-08-05 15:19 | disposition home or self-care (01) | PROVIDERS: PCP Family Medicine; Visit Provider Family Medicine | DX: K52.9 Noninfective gastroenteritis and colitis, unspecified (principal) | CPT/HCPCS: 83993; 87493; 87506 ==

== ENCOUNTER → 2020-08-21 09:35 | Outpatient (BNVA) | payer OTHER, MEDICARE, SELFPAY | PROVIDERS: PCP Family Medicine; Visit Provider Surgery | DX: Z01.812 Encounter for preprocedural laboratory examination (principal); Z20.822 Contact with and (suspected) exposure to COVID-19 | CPT/HCPCS: 87635 ==

== ENCOUNTER → 2020-09-02 14:12 | Outpatient (BNVA) | payer OTHER, MEDICARE, SELFPAY | PROVIDERS: PCP Family Medicine; Visit Provider Orthopaedic Surgery | DX: Z20.822 Contact with and (suspected) exposure to COVID-19 (principal) | CPT/HCPCS: 87635 ==

== ENCOUNTER 2020-09-07 15:37 | Emergency (ER) | payer OTHER, MEDICARE, SELFPAY ==
[2020-09-07 16:29] VITALS: BP 166/90; PULSE 96; RESP 18; TEMP 37.9; O2SAT 94; BMI 24.9
[2020-09-07 16:34] VITALS: BP 166/90; PULSE 113; RESP 18; TEMP 37.9; O2SAT 98
--- NOTE | 2020-09-07 16:44 | XRR_ITS ---
PROCEDURE INFORMATION: Exam: XR Chest Exam date and time: 09/07/2020 4:46 PM Age: 75 years old Clinical indication: Dyspnea; Additional info: Reduced breath sounds TECHNIQUE: Imaging protocol: XR of the chest. Views: 1 view. COMPARISON: CR XR chest 1V portable [id number] 07/28/2020 10:16 AM FINDINGS: Lungs: Emphysema. Stable mild chronic interstitial changes. No consolidation. Pleural spaces: Unremarkable. No pleural effusion. No pneumothorax. Heart/Mediastinum: Unremarkable. No cardiomegaly. Bones/joints: C-spine hardware. XR/XR chest 1V portable [id number] IMPRESSION: 1. No acute findings.
[2020-09-07 16:57] LABS: Basophils % 0.1 %; Hematocrit 43.7 % (37.0-47.0); Hemoglobin 14.9 g/dL (11.5-15.3); Lymphocytes % 7.7 %; Mean Corpuscular HGB Conc 34.1 g/dL (30.0-36.0); Mean Corpuscular Hemoglobin 29.2 pg (28.0-34.0); Mean Corpuscular Volume 85.5 fL (81-99); Mean Platelet Volume 11.2 fL (7.4-10.4); Monocytes # 0.9 10^3/uL (0.2-0.9); Monocytes % 6.4 %; Neutrophils # 11.47 10^3/uL (1.8-7.7); Neutrophils % 85.6 %; Nucleated Red Blood Cells % 0 %; Platelet Count 210 10^3/cmm (130-400); Red Blood Count 5.11 10^6/uL (4.1-5.3); Red Cell Distribution Width 11.8 % (12.1-15.1); White Blood Count 13.4 10^3/uL (4.0-10.0)
[2020-09-07] MEDS: acetaminophen 1,000 MG/100 ML PIGGYBACK 400 MG IV (17:20)
[2020-09-07] MEDS: sodium chloride 0.9% 1,000 ML 999 ML IV (17:20)
[2020-09-07] MEDS: ondansetron 2 mg/ML SDV 2 mL 4 MG IVP ×2 (17:20→21:45)
[2020-09-07 17:28] VITALS: BP 178/95; PULSE 104; RESP 18; O2SAT 98
[2020-09-07 17:49] LABS: Alanine Aminotransferase 13 U/L (0-33); Alkaline Phosphatase 100 IU/L (35-105); Anion Gap 19.7 (5-19); Aspartate Amino Transferase 16 U/L (0-32); Blood Urea Nitrogen 14 mg/dL (8-23); Carbon Dioxide 22 mmol/L (22-29); Chloride 100 mmol/L (98-107); Globulin 2.3 g/dL (1.3-4.6); Glucose 149 mg/dL (65-115); Lipase 60 U/L (13-60); Osmolality Calculated 291 mOsm/kg (285-295); Sodium 139 mmol/L (136-145); Total Bilirubin 0.8 mg/dL (0.15-1.2); Total Protein 7.3 g/dL (6.6-8.7)
[2020-09-07 17:51] LABS: Potassium 2.7 mmol/L (3.5-5.1)
--- NOTE | 2020-09-07 17:53 | CTR_ITS ---
PROCEDURE INFORMATION: Exam: CT Abdomen And Pelvis With Contrast Exam date and time: 09/07/2020 6:18 PM Age: 75 years old Clinical indication: Abdominal pain; Generalized; Prior surgery; Surgery date: 6+ months; Surgery type: Back, hyst; Patient HX: C/O abd cramping, diarrhea, weakness and fever TECHNIQUE: Imaging protocol: Computed tomography of the abdomen and pelvis with contrast. Radiation optimization: All CT scans at this facility use at least one of these dose optimization techniques: automated exposure control; mA and/or kV adjustment per patient size (includes targeted exams where dose is matched to clinical indication); or iterative reconstruction. Contrast material: OMNI 300; Contrast volume: 95 ml; Contrast route: INTRAVENOUS (IV); COMPARISON: CT abdomen pelvis w con* [id number] 07/28/2020 11:58 AM RADIATION DOSE METRICS: Total DLP (mGy-cm): 1348.77 FINDINGS: Liver: Normal. No mass. Gallbladder and bile ducts: Normal. No calcified stones. No ductal dilation. Pancreas: Normal. No ductal dilation. Spleen: Normal. No splenomegaly. Adrenal glands: Normal. No mass. Kidneys and ureters: Normal. No hydronephrosis. Stomach and bowel: Mild diverticulosis of the distal colon without diverticulitis. The colon is decompressed, limiting evaluation of the wall thickness. The stomach and small bowel are unremarkable. Appendix: The appendix is not visualized. No secondary signs of appendicitis. Intraperitoneal space: Unremarkable. No free air. No significant fluid collection. Vasculature: Unremarkable. No abdominal aortic aneurysm. Lymph nodes: Unremarkable. No enlarged lymph nodes. Urinary bladder: Unremarkable as visualized. Reproductive: The uterus and ovaries are absent. Bones/joints: Degenerative spine. Sclerotic bone island in the S1 sacrum. Mild T11 compression fracture is unchanged. No acute fracture. Soft tissues: Surgical clips in the left pelvis. Other findings: No obstruction or wall thickening. CT/CT abdomen pelvis w con* [id number] IMPRESSION: 1. No acute abnormality identified in the abdomen or pelvis. 2. Mild diverticulosis of the distal colon. Radiation Dose CTDIVOL = (mGy): DLP = 1348.77 (mGy-cm)
[2020-09-07 17:56] LABS: Add Urine Microscopic? YES; Bilirubin Urine Neg (Negative); Blood Urine 3+ (Negative); Glucose Urine UA Norm (Normal); Ketones Urine 1+ (Negative); Leukocyte Esterase Urine Negative (Negative); Nitrate Urine Negative (Negative); Protein Urine 3+ (Negative); Specific Gravity, Urine 1.025 (1.005-1.030); Urine Appearance Turbid (CLEAR); Urine Color Yellow (Yellow); Urobilinogen Urine Norm (Negative); pH Urine 5 (5-7)
[2020-09-07 18:03] LABS: Mucus Urine 1+ /hpf; Squamous Epithelial Cell Urine 0-4 /hpf (0-5)
[2020-09-07 18:04] LABS: Amorphous Sediment Urine 4+ /hpf
[2020-09-07 18:05] LABS: Bacteria Urine 2+ /hpf
[2020-09-07 18:06] LABS: Add Urine Culture? Yes
[2020-09-07] MEDS: lidocaine 1% 5 ML in potassium chloride premix 100 ML 25 ML IV (18:10)
[2020-09-07] MEDS: iohexol 300 mg/mL 100 mL Btl IV (18:32)
[2020-09-07 18:34] VITALS: BP 176/85; PULSE 100; RESP 18; O2SAT 95
[2020-09-07 19:09] VITALS: BP 157/79; PULSE 114; RESP 18; TEMP 36.9; O2SAT 99
--- NOTE | 2020-09-07 20:06 | W.ED.ABDPA2 ---
HPI - Abdominal Pain General: Chief Complaint: Abdominal Pain Stated Complaint: n/v/d/weakness Time Seen by Provider: 09/07/20 16:42 History of Present Illness: HPI narrative: The patient is a 75-year-old female with past medical history repeat episodes of nausea, vomiting, diarrhea, and hypokalemia. She comes in the day with another exacerbation of this for the past day. She also has a fever and generalized weakness. Temp 100.3 on arrival MD elicited complaint: abdominal pain Onset (ago): day(s) (1) Pain Consistency: constant Location: Diffuse Severity: moderate Quality: cramping Radiation: none Exacerbating factors: eating, bowel movement and vomiting Relieving factors: nothing Associated Symptoms: Reports chills, diarrhea, fever(s), nausea and vomiting Review of Systems General: Reports: 10 or more systems reviewed and unremarkable except in HPI and below Const: Reports: fever(s) and chills Eyes: Denies: change in vision, blurry vision or eye redness ENMT: Denies: throat pain, swelling of lips/tongue, ear or mastoid pain or nasal congestion Card: Denies: chest pain, palpitations, irregular heart rhythm, edema, dyspnea on exertion or orthopnea Resp: Denies: dyspnea, productive cough or non-productive cough GI: Reports: abdominal pain, nausea, vomiting and diarrhea : Denies: flank pain, difficulty voiding, urinary frequency or urinary urgency Musc: Denies: neck pain, back pain, extremity pain, joint pain, joint redness, limited range of motion or muscle weakness Skin/Breast: Denies: rash, pruritus, erythema, skin pain or skin tenderness Neuro: Denies: headache(s), numbness in extremities, weakness in extremities, sensory changes, difficulty walking, dizziness, confusion or Slurred speech present Psych: Denies: anxiety or depression Endo: Denies: polyuria All/Imm: Denies: urticaria, throat swelling or tongue swelling PFSH ED PFSH: Medical History Acute gastritis Asthma Cervical disc disease Chronic back pain Depression DJD (degenerative joint disease) Duodenitis Hernia History of kidney stones Hyperlipidemia Hypertension Nausea Surgical History History of back surgery History of knee joint replacement History of lumbar surgery History of neck surgery History of tonsillectomy History of total hysterectomy Family History Other CAD (coronary artery disease) Dementia Social History Smoking and tobacco status: never smoked Second hand smoke exposure: Yes Alcohol intake: never Physical Exam Const: COMMON NORMALS: no acute distress, average body habitus, patient oriented x3, no limitations, alert and well nourished GENERAL APPEARANCE: cooperative, comfortable, well kempt and well developed ORIENTATION/CONSCIOUSNESS: Yes awake, Yes oriented to person, Yes oriented to place and Yes oriented to time OTHER: dehydrated, general weakness. No focal weakness. HENMT: COMMON NORMALS: normocephalic, external ears normal and Normal external nose present HEAD & SCALP: normal to inspection and normocephalic NOSE: Normal external nose present EXTERNAL EAR: Yes external ears normal MOUTH: Normal oral and palatal mucosa present THROAT: posterior oropharynx normal Eye: COMMON NORMALS: Equal, round and reactive pupils present and EOMs intact bilaterally GENERAL EYE: appearance normal, both eyes and all related structures PUPIL: Yes Equal, round and reactive pupils present Neck/C-Spine: COMMON NORMALS: full ROM, no lymphadenopathy, no meningeal signs and no JVD GENERAL: Yes normal visual inspection Lymph: LYMPHATIC: no lymphadenopathy noted Chest: COMMONS NORMALS: normal inspection of the chest and normal palpation of entire chest wall Resp: COMMON NORMALS: normal respiratory effort, No retractions, No use of accessory muscles, clear to auscultation bilaterally and percussion normal EFFORT & INSPECTION: Yes able to speak in complete sentences AUSCULTATION: clear to auscultation bilaterally PERCUSSION: percussion normal Cardio: COMMON NORMALS: no JVD, regular rate, regular rhythm, S1 normal heart sound present, S2 normal heart sound present and Peripheral pulses 2+ throughout RATE: regular rate RHYTHM: regular rhythm HEART SOUNDS: S1 normal heart sound present and S2 normal heart sound present PERIPHERAL PULSES: Peripheral pulses 2+ throughout GI: COMMON NORMALS: Normal to inspection, nondistended, normoactive bowel sounds present, Soft to palpation and no masses INSPECTION: Yes normal to inspection PALPATION: Yes Soft to palpation and Yes Tenderness to palpation present (GI) OTHER: Diffuse abdominal tenderness. No focal tenderness. No rebound tenderness. : COMMON NORMALS: Yes no CVA tenderness BLADDER/KIDNEY EXAM: Yes no CVA tenderness Back/Pelvis: COMMON NORMALS: no CVA tenderness, thoracic and lumbar spine normal to inspection, no thoracic nor lumbar tenderness and thoraco-lumbar ROM normal Extremity: COMMON NORMALS: normal to inspection, full ROM, capillary refill normal, no joint enlargement and no pedal edema GENERAL: Yes normal exam except as noted Neuro: COMMON NORMALS: patient oriented x3, CN's II-XII intact bilaterally, moves all extremities, no focal motor deficits, no sensory deficits noted and gait normal SENSORIUM/ORIENTATION: Yes alert, Yes oriented to person, Yes oriented to place and Yes oriented to time MENINGEAL SIGNS: Yes no meningeal signs Psych: COMMON NORMALS: mental status grossly normal, Normal thought process present, cooperative, normal affect and speech normal APPEARANCE: Yes well kempt ATTITUDE: Yes calm SPEECH: Yes normal speech THOUGHT PROCESS: Normal thought process present Skin: COMMON NORMALS: no rashes or lesions noted GENERAL SKIN EXAM: no rashes or lesions noted Course Vital Signs: Vital signs: Vital Signs Temperature 98.5 F 09/07/20 19:09 Pulse Rate 114 H 09/07/20 19:09 Respiratory Rate 18 09/07/20 19:09 Blood Pressure 157/79 09/07/20 19:09 Pulse Oximetry 99 09/07/20 19:09 MDM - Abdominal Pain MDM Narrative: Medical decision making narrative: The patient came in with gastroenteritis symptoms that she has frequently. She was given IV fluids and Zofran with resolution of her symptoms. She was also started on IV potassium as she is hypokalemic at 2.7. She frequently goes home with oral potassium and should do well. I also refilled her Phenergan suppositories. Fever improved after Tylenol. Stable for discharge. Follow-up with primary care in a couple days. ER with worsening symptoms Lab Data: Labs: Lab Results 09/07/20 09/07/20 09/07/20 Range/Units 16:25 16:25 16:25 WBC 13.4 H (4.0-10.0) 10^3/ uL RBC 5.11 (4.1-5.3) 10^6/u L Hgb 14.9 (11.5-15.3) g/dL Hct 43.7 (37.0-47.0) % MCV 85.5 (81-99) fL MCH 29.2 (28.0-34.0) pg MCHC 34.1 (30.0-36.0) g/dL RDW 11.8 L (12.1-15.1) % Plt Count 210 (130-400) 10^3/c mm MPV 11.2 H (7.4-10.4) fL Neut % (Auto) 85.6 % Lymph % (Auto) 7.7 % Island % (Auto) 6.4 % Eos % (Auto) 0.0 % Baso % (Auto) 0.1 % Neut # (Auto) 11.47 H (1.8-7.7) 10^3/u L Lymph # (Auto) 1.0 (0.8-4.8) 10^3/u L Island # (Auto) 0.9 (0.2-0.9) 10^3/u L Eos # (Auto) 0.0 (0.0-0.8) 10^3/u L Baso # (Auto) 0.0 (0.0-0.1) 10^3/u L Nucleated RBC % (a uto) 0 % Nucleated RBCs # 0.0 /100WBC Sodium Cancelled Potassium Cancelled Chloride Cancelled Carbon Dioxide Cancelled Anion Gap Cancelled BUN Cancelled Creatinine Cancelled GFR Calculation Cancelled Glucose Cancelled Calculated Osmolal ity Cancelled Lactate 2.0 (0.5-2.2) mmol/L Calcium Cancelled Total Bilirubin Cancelled AST Cancelled ALT Cancelled Alkaline Phosphata se Cancelled Total Protein Cancelled Albumin Cancelled Globulin Cancelled Lipase Cancelled Urine Color (Yellow) Urine Appearance (CLEAR) Urine pH (5-7) Ur Specific Gravit y (1.005-1.030) Urine Protein (Negative) Urine Glucose (UA) (Normal) Urine Ketones (Negative) Urine Blood (Negative) Urine Nitrate (Negative) Urine Bilirubin (Negative) Urine Urobilinogen (Negative) mg/dL Ur Leukocyte Bailey ase (Negative) Urine RBC (0-2) /hpf Urine WBC (0-5) /hpf Ur Squamous Epith Cells (0-5) /hpf Amorphous Sediment /hpf Urine Bacteria (NONE) /hpf Urine Mucus /hpf 09/07/20 09/07/20 Range/Units 17:17 17:24 WBC (4.0-10.0) 10^3/ uL RBC (4.1-5.3) 10^6/u L Hgb (11.5-15.3) g/dL Hct (37.0-47.0) % MCV (81-99) fL MCH (28.0-34.0) pg MCHC (30.0-36.0) g/dL RDW (12.1-15.1) % Plt Count (130-400) 10^3/c mm MPV (7.4-10.4) fL Neut % (Auto) % Lymph % (Auto) % Island % (Auto) % Eos % (Auto) % Baso % (Auto) % Neut # (Auto) (1.8-7.7) 10^3/u L Lymph # (Auto) (0.8-4.8) 10^3/u L Island # (Auto) (0.2-0.9) 10^3/u L Eos # (Auto) (0.0-0.8) 10^3/u L Baso # (Auto) (0.0-0.1) 10^3/u L Nucleated RBC % (a uto) % Nucleated RBCs # /100WBC Sodium 139 Potassium 2.7 L* Chloride 100 Carbon Dioxide 22 Anion Gap 19.7 H BUN 14 Creatinine 0.7 GFR Calculation Not Reportable Glucose 149 H Calculated Osmolal ity 291 Lactate (0.5-2.2) mmol/L Calcium 9.0 Total Bilirubin 0.8 AST 16 ALT 13 Alkaline Phosphata se 100 Total Protein 7.3 Albumin 5.0 Globulin 2.3 Lipase 60 Urine Color Yellow (Yellow) Urine Appearance Turbid (CLEAR) Urine pH 5 (5-7) Ur Specific Gravit y 1.025 (1.005-1.030) Urine Protein 3+ H (Negative) Urine Glucose (UA) Norm (Normal) Urine Ketones 1+ H (Negative) Urine Blood 3+ H (Negative) Urine Nitrate Negative (Negative) Urine Bilirubin Neg (Negative) Urine Urobilinogen Norm (Negative) mg/dL Ur Leukocyte Bailey ase Negative (Negative) Urine RBC None (0-2) /hpf Urine WBC None (0-5) /hpf Ur Squamous Epith Cells 0-4 H (0-5) /hpf Amorphous Sediment 4+ /hpf Urine Bacteria 2+ H (NONE) /hpf Urine Mucus 1+ /hpf Discharge Plan Discharge Patient Disposition: Home Clinical Impression: Gastroenteritis, Acute hypokalemia Condition: Stable Prescriptions: New Klor-Con 20 mEq packet 20 meq PO QID Qty: 4 RF: 0 promethazine 25 mg suppository 25 mg [place] Q6H PRN (Reason: nausea and vomiting) Qty: 12 RF: 0 No Action dicyclomine 10 mg capsule 10 mg PO DAILY PRN (Reason: stomach cramps) RF: 0 metaxalone [Skelaxin] 800 mg tablet 800 mg PO TID@08,12,20 RF: 0 hyoscyamine sulfate [Levsin] 0.125 mg tablet 0.125 mg PO QID@08,12,15,20 RF: 0 ezetimibe [Zetia] 10 mg tablet 10 mg PO DAILY@20 RF: 0 simvastatin [Zocor] 40 mg tablet 40 mg PO DAILY@20 RF: 0 cholecalciferol (vitamin D3) 10 mcg (400 unit) capsule 10 mcg PO DAILY RF: 0 lidocaine 5 % ointment 1 applic topical QID PRN (Reason: Rash) RF: 0 (DME) Bone growth Stimulator E0748 See Rx Instructions .Route .MEDSUPPLY Qty: 1 RF: 0 morphine 30 mg tablet 30 - 60 mg PO Q4H PRN (Reason: Pain) RF: 0 pregabalin [Lyrica] 75 mg Capsule 75 mg PO QID@08,12,15,20 RF: 0 meclizine [Motion Relief (meclizine)] 25 mg tablet 12.5 mg PO BID PRN (Reason: dizziness) Qty: 10 RF: 0 fluticasone propion-salmeterol [Advair Diskus] 250-50 mcg/dose Blister With Device 1 inh INHALATION BID RF: 0 albuterol sulfate 90 mcg/actuation Hfa Aerosol Inhaler 2 puff INHALATION Q4H PRN (Reason: Shortness Of Breath) RF: 0 amlodipine [Norvasc] 2.5 mg Tablet 2.5 mg PO DAILY RF: 0 ondansetron HCl 4 mg tablet 4 mg PO Q6H PRN (Reason: NAUSEA/VOMITING) RF: 0 Discharge Orders: Discharge ED (Routine); Ordered 09/07/20 Ordered By: Mark Nichole Referrals: Ac Collins MD [Primary Care Provider] - Discharge Diet: Advance as tolerated Discharge Activity: Resume usual activity Patient Instructions: Hypokalemia (ED), Gastroenteritis (ED), Opioid Safety Activity Restrictions/Additional Instructions: You have had another episode of nausea, vomiting, and diarrhea. Also again your potassium is low. Please try to take the Phenergan suppositories to help with your nausea and drink lots of fluids. I have also attached a prescription for potassium to help bring it back up. Once you stop vomiting it should resolve on its own. Please follow-up with your primary care doctor in a couple days to monitor improvement of your symptoms. Return to the ER with worsening symptoms Coding Level of Care Code ED Clinical Administrator for Roseline Carpenter
[2020-09-07] MEDS: promethazine 25 mg/mL SDV 1 mL IM (22:16)
--- NOTE | 2020-09-07 22:23 | PC.NURSE ---
2220: Pt is extremely lethargic. Has to be shaken to be awoke to discuss care. NOt answering questions. Dr. Chavez called to room. Asked to hold phenergan d/t pt being lethargic. Not responsive to Dr. Chavez at this time either.
[2020-09-07 22:30] VITALS: BP 188/104; PULSE 88; RESP 18; TEMP 37.1; O2SAT 98
--- NOTE | 2020-09-07 23:07 | PC.NURSE ---
2300 Pt is now awake and speaking and is a/o, spouse at bedside as well as Dr. Chavez. VSS. Now preparing for discharge.
== END 2020-09-07 23:10 | disposition home or self-care (01) ==
PROVIDERS: Emergency Provider Family Medicine; PCP Family Medicine
DX: K52.9 Noninfective gastroenteritis and colitis, unspecified (principal); E87.6 Hypokalemia; E78.5 Hyperlipidemia, unspecified; I10 Essential (primary) hypertension; Z77.22 Contact with and (suspected) exposure to environmental tobacco smoke (acute) (chronic)
CPT/HCPCS: 71045; 74177; 80053; 81001; 83605; 83690; 85025; 87040; 87077; 87086; 87186; 87205; 96361; 96372; 96374; 96375; 96376; 99284; J2405; J2550; J3480; J7030; Q9967

== ENCOUNTER → 2020-09-26 12:53 | Outpatient (BNVA) | payer OTHER, MEDICARE, SELFPAY | PROVIDERS: PCP Family Medicine; Visit Provider Orthopaedic Surgery | DX: Z01.818 Encounter for other preprocedural examination (principal); Z20.822 Contact with and (suspected) exposure to COVID-19 | CPT/HCPCS: 87635 ==

== ENCOUNTER 2020-10-03 14:18 | Inpatient (IN) | payer OTHER, MEDICARE, SELFPAY ==
[2020-09-03 09:54] VITALS: BMI 26.6
[2020-09-03 10:23] LABS: Basophils # 0.1 10^3/uL (0.0-0.1); Eosinophils # 0.4 10^3/uL (0.0-0.8); Eosinophils % 6.8 %; Hematocrit 40.5 % (37.0-47.0); Hemoglobin 13.6 g/dL (11.5-15.3); Lymphocytes # 1.8 10^3/uL (0.8-4.8); Lymphocytes % 34.7 %; Mean Corpuscular HGB Conc 33.6 g/dL (30.0-36.0); Mean Corpuscular Hemoglobin 29.8 pg (28.0-34.0); Mean Corpuscular Volume 88.6 fL (81-99); Mean Platelet Volume 10.6 fL (7.4-10.4); Monocytes # 0.6 10^3/uL (0.2-0.9); Monocytes % 11.2 %; Neutrophils # 2.39 10^3/uL (1.8-7.7); Neutrophils % 46.1 %; Nucleated Red Blood Cells % 0 %; Platelet Count 162 10^3/cmm (130-400); Red Blood Count 4.57 10^6/uL (4.1-5.3); Red Cell Distribution Width 11.9 % (12.1-15.1); White Blood Count 5.2 10^3/uL (4.0-10.0)
[2020-09-03 10:36] LABS: Anion Gap 12.9 (5-19); Blood Urea Nitrogen 12 mg/dL (8-23); Calcium 8.4 mg/dL (8.5-10.5); Carbon Dioxide 30 mmol/L (22-29); Chloride 101 mmol/L (98-107); Creatinine Clr Calc Pharmacy 65.0381; Glucose 105 mg/dL (65-115); Osmolality Calculated 288 mOsm/kg (285-295); Potassium 4.9 mmol/L (3.5-5.1); Sodium 139 mmol/L (136-145)
--- NOTE | 2020-09-03 10:49 | P.ANESASSM_ITS ---
Pre-Anesthetic Assessment Pre-Anesthetic Assessment: Height/Weight: Height 1.7 m Weight 77.111 kg Preop Diagnosis: cervical stenosis with myelopathy Proposed Procedure: Operation Date: 09/08/20 07:00 Proposed Procedures p 13327, 92164 (x4), 724608, 75595, 34594, 91386, 38078 m47.12 PSF C3-C7 with decompresssion of C4-7(Not Applicable) - Alex Jaramillo Caron, DO s with decompresssion of C4-7(Not Applicable) - Alexlalita Jaramillo Caron, DO Was Beta Pranav taken within 24 hours: N/A Was Clonidine taken within 24 hours: N/A Social: Social History: No alcohol and No tobacco Exam: Pre-Anes Outpt Exam: alert, oriented x 3, clear to auscultation bilaterally and regular rate & rhythm Airway: Submandibular: WNL Cervical ROM: WNL MP: 2 Dentition: Full Pulmonary: Pulmonary: Asthma CV/HEM: CV/HEM: HTN Musc/skel: Musc/skel: Lower Back Pain and OA/DJD Comments: Chronic pain/opioid Neuropsych: Neuropsych: TIA Anesthetic Plan: ASA status: 3 Anesthesia: General Risk of > 500 ml blood loss (7ml/kg in children): No PFSH Anesthesia PFSH: Medical History Acute gastritis Asthma Cervical disc disease Chronic back pain Depression DJD (degenerative joint disease) Duodenitis Hernia History of kidney stones Hyperlipidemia Hypertension Nausea Surgical History History of back surgery History of knee joint replacement History of lumbar surgery History of neck surgery History of tonsillectomy History of total hysterectomy Family History Other CAD (coronary artery disease) Dementia Social History Smoking and tobacco status: never smoked Second hand smoke exposure: Yes Alcohol intake: never Data Anesthesia CBC & Chem 7: 09/03/20 10:10 09/03/20 10:10 Other Labs: Laboratory Results - last 48 hr 09/03/20 09/03/20 10:10 10:10 WBC 5.2 RBC 4.57 Hgb 13.6 Hct 40.5 MCV 88.6 MCH 29.8 MCHC 33.6 RDW 11.9 L Plt Count 162 MPV 10.6 H Neut % (Auto) 46.1 Lymph % (Auto) 34.7 [place] % (Auto) 11.2 Eos % (Auto) 6.8 Baso % (Auto) 1.0 Neut # (Auto) 2.39 Lymph # (Auto) 1.8 [place] # (Auto) 0.6 Eos # (Auto) 0.4 Baso # (Auto) 0.1 Nucleated RBC % (auto) 0 Nucleated RBCs # 0.0 Sodium 139 Potassium 4.9 Chloride 101 Carbon Dioxide 30 H Anion Gap 12.9 BUN 12 Creatinine 0.8 GFR Calculation Not Reportable Glucose 105 Calculated Osmolality 288 Calcium 8.4 L Cardiac Studies: No Data to Display
[2020-10-03] VITALS (21 sets, daily range): BP systolic 140–155; BP diastolic 70–87; PULSE 73–96; RESP 15–18; TEMP 36.4–37; O2SAT 95–100
--- NOTE | 2020-10-03 | SCC_ITS ---
Procedure Done: 1. C3-T2 posterior spine fusion 2. C3-T2 posterior spine instrumentation 3. Lamanectomy C4 with partial facetectomies C4/5 4. Lamanectomy C5 with partial facetectomies C5/6 5. Lamanectomy C6 with partial facetectomies C6/7 6. Laminectomy C7 with partial facetectomies C7/T1 7. application and removal of hall tong 8. Use of allograft 9 use of autograft from same incision 25.7 seconds of fluoroscopic guidance, for a cumulative dose of 3.02 mGy, was provided to Dr. Cowan by the radiology department. C-arm images of the cervical spine were saved for the patient's permanent record. [facility]
--- NOTE | 2020-10-03 11:52 | ECG_ITS ---
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 Measurements Intervals [place] Rate: 69 P: 63 AL: 192 QRS: 44 QRSD: 84 T: 47 QT: 390 QTc: 420 Interpretive Statements SINUS RHYTHM Compared to ECG 05/15/2020 15:26:47 Ventricular premature complex(es) no longer present Electronically Signed On 10-03-2020 22:32:10 CDT by Naa Weinberg M.D. [id number]
--- NOTE | 2020-10-03 12:27 | ANES.PREANE2 ---
Pre-Anesthetic Assessment Pre-Anesthetic Assessment: Height/Weight: Height 1.7 m Weight 77.111 kg Temp Pulse Resp BP Pulse Ox 97.8 F 79 18 140/76 96 10/03/20 12:10 10/03/20 12:10 10/03/20 12:10 10/03/20 12:10 10/03/20 12:10 Preop Diagnosis: cervical spondylosis Proposed Procedure: Operation Date: 10/03/20 13:30 Proposed Procedures p 77575, 01499 (x4), 863599, 06036, 29802, 58937, 03206 m47.12 PSF C3-C7 with decompresssion of C4-7(Not Applicable) - Alex H Camryn, DO s with decompresssion of C4-7(Not Applicable) - Alex H Camryn, DO Was Beta Pranav taken within 24 hours: N/A Was Clonidine taken within 24 hours: N/A Last intake: Intake Last Liquid Date 10/03/20 Last Liquid Time 07:00 Last Solid Date 10/02/20 Last Solid Time 07:15 Social: Social History: No alcohol and No tobacco Exam: Pre-Anes Outpt Exam: alert, oriented x 3, clear to auscultation bilaterally and regular rate & rhythm Airway: Submandibular: WNL Cervical ROM: WNL MP: 2 Dentition: Full Pulmonary: Pulmonary: Asthma CV/HEM: CV/HEM: HTN Metabolic: Metabolic: Hyperlipidemia Comments: hypokalemia--recent GI distress Musc/skel: Musc/skel: Lower Back Pain Comments: Chronic pain/opioid Anesthetic Plan: ASA status: 3 Anesthesia: General Risk of > 500 ml blood loss (7ml/kg in children): No PFSH Anesthesia PFSH: Medical History Acute gastritis Asthma Cervical disc disease Chronic back pain Depression DJD (degenerative joint disease) Duodenitis Hernia History of kidney stones Hyperlipidemia Hypertension Nausea Surgical History History of back surgery History of knee joint replacement History of lumbar surgery History of neck surgery History of tonsillectomy History of total hysterectomy Family History Other CAD (coronary artery disease) Dementia Social History Smoking and tobacco status: never smoked Second hand smoke exposure: Yes Alcohol intake: never Data Anesthesia CBC & Chem 7: 09/03/20 10:10 09/03/20 10:10 Cardiac Studies: No Data to Display
--- NOTE | 2020-10-03 12:30 | ECG_ITS ---
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 Measurements Intervals [place] Rate: 77 P: 61 DE: 187 QRS: 40 QRSD: 83 T: 44 QT: 380 QTc: 430 Interpretive Statements SINUS RHYTHM WITH SINUS ARRHYTHMIA Compared to ECG 05/15/2020 15:26:47 Ventricular premature complex(es) no longer present Electronically Signed On 10-04-2020 15:04:06 CDT by Ariella Mackenzie M.D. [id number]
[2020-10-03] MEDS: sodium chloride 0.9% 1,000 ML 30 ML IV (12:38)
[2020-10-03 12:56] LABS: Anion Gap 12.9 (5-19); Blood Urea Nitrogen 11 mg/dL (8-23); Calcium 8.3 mg/dL (8.5-10.5); Carbon Dioxide 28 mmol/L (22-29); Chloride 102 mmol/L (98-107); Creatinine Clr Calc Pharmacy 65.0381; Glucose 92 mg/dL (65-115); Osmolality Calculated 287 mOsm/kg (285-295); Potassium 3.9 mmol/L (3.5-5.1); Sodium 139 mmol/L (136-145)
--- NOTE | 2020-10-03 13:09 | W.PM.OPSUD ---
Surgery/Procedure H&P Update DATE OF PROCEDURE: October 03, 2020 DATE H&P PERFORMED: 09/25/20 H&P UPDATE INFORMATION: I have reviewed H&P completed within last 30 days, I have examined patient prior to procedure and No changes to prior documentation PREOP DIAGNOSIS: cervical spondylosis PLANNED PROCEDURE: Operation Date: 10/03/20 13:30 Proposed Procedures p 39004, 33357 (x4), 997927, 11316, 87704, 06776, 38098 m47.12 PSF C3-C7 with decompresssion of C4-7(Not Applicable) - Alex Cowan, DO s with decompresssion of C4-7(Not Applicable) - Alex Cowan, DO
[2020-10-03] MEDS: neomycin-poly-bacitracin oint 28 gm 1 APPLIC TOPICAL (14:20)
--- NOTE | 2020-10-03 15:10 | SUR.OPER ---
1500 notified of surgical status
--- NOTE | 2020-10-03 16:40 | PM.OP ---
Operative Report Date of procedure: October 03, 2020 Pre-op Diagnosis: cervical spondylosis Post-op diagnosis: same Procedure Done: 1. C3-T2 posterior spine fusion 2. C3-T2 posterior spine instrumentation 3. Lamanectomy C4 with partial facetectomies C4/5 4. Lamanectomy C5 with partial facetectomies C5/6 5. Lamanectomy C6 with partial facetectomies C6/7 6. Laminectomy C7 with partial facetectomies C7/T1 7. application and removal of hall tong 8. Use of allograft 9 use of autograft from same incision Anesthesia: General Estimated blood loss (mL): 500 Condition: stable Disposition: PACU Procedure: 1. C3-T2 posterior spine fusion 2. C3-T2 posterior spine instrumentation 3. Lamanectomy C4 with partial facetectomies C4/5 4. Lamanectomy C5 with partial facetectomies C5/6 5. Lamanectomy C6 with partial facetectomies C6/7 6. Laminectomy C7 with partial facetectomies C7/T1 7. application and removal of hall tong 8. Use of allograft 9 use of autograft from same incision Patient is brought to the operative suite after undergoing anesthesia patient had application of the Hall tongs. His were placed above the external auditory meatus patient was then flipped into the prone position. And then locked into the table with the Hall attachment. All areas of impingement well-padded. Patient was then prepped and draped in normal sterile fashion. Skin incision made over the C3-T2 level. Using knife and Bovie and retractors. Subperiosteal dissection was made out to the edges of the lateral masses of C3 down to the C7. And then T1 and T2 were dissected out to the tips of the transverse processes. Retractors were then placed. C-arm was used to confirm the levels. And then lateral mass screws were placed at C3-C4 C5-C6. This was done by using a power drill followed by the hand drill followed by the ball probe and then placing 16mm screws at C3 bilaterally and then 14 mm screws at C4-C5 and C6 bilaterally. Next attention was brought to placing pedicle screws at T1 and T2. AP fluoroscopy was used. And then drill was made commercial drone pilot hole and then the gearshift probe was used and then 26 to 20 mm screws were used and placed in the T1 and T2. Next attention was brought to performing the laminectomies with partial facetectomies. A high-speed bur was used to take down the lamina bilaterally at C7 C6 C5 and C4. Kerrison rongeur was used to finish the troughs were created and freed up the lamina bilaterally. This was done at C7 C6 C5 and C4. The ligamentum flavum was taken down and the laminectomy of these 4 levels was done using the curet and Kerrison rongeur to cut through the ligamentum flavum. Once the 4 laminas were taken out then the tendon was brought to doing partial facetectomies of C7-T1 bilaterally C6-7 bilaterally C5-6 bilaterally and C4-5 bilaterally. This ensured that the nerve roots were decompressed the dura and spinal cord were decompressed. Attention was brought to placing the say from C3-T2. The say was measured and 120 mm say was used. It was bent into lordosis. And then locked with end caps this was done on both the right and left side. The final combine driver was used to torqued down the knots. Once this was completed attention was then brought to decorticating the bone at C3-C4 C5-C6-C7 T1-T2. Osteoamp fibers with the patient's own bone was mixed and packed into the lateral gutters at these levels. Vancomycin powder was then mixed in the lateral gutters as well. And then a Hemovac drain was placed in the tissue was closed in a layered fashion using 0 Vicryl strata fix 2 oh Stratus fix and 3-0 nylon a Silverlon dressing was placed in patient was then flipped into the supine position Hall attachment was then removed patient was placed in a collar and transferred to the PACU in stable condition.
--- NOTE | 2020-10-03 16:54 | XR_ITS ---
WS: [id number] C-ARM RADIOGRAPHS CERVICAL SPINE; 3 IMAGES HISTORY: NECK PAIN COMPARISON: 06/21/2019 Intraoperative imaging during posterior screw fixation. Anterior cervical fusion has already been per formed from C4 through C6. There are now posterior fusion screws noted at C3, C4 and C5. XR/XR cervical spine 1V [id number] IMPRESSION: Intraoperative imaging during posterior fusion hardware placement.
[2020-10-03] MEDS: vancomycin 1,000 MG SDV 1000 MG XX (16:55)
--- NOTE | 2020-10-03 17:43 | SUR.PHASEI ---
PT AWAKES TO VOICE, MOVES ALL EXTREMETIES TO COMMAND AND STRONGLY, C COLLAR IN PLACE PER GURPREET IN PT. IV PATENT, TO LT FOREARM, SCDS ON , PT HAS A HEMAVAC DRAIN COMPRESSED WITH 130ML OF THICK RED DRAINAGE REMOVED FROM DRAIN AND DRAIN COMPRESSED FOR CONTINUAL SX. DRESSING TO MID UPPER BACK D/I
[2020-10-03] MEDS: meperidine 50 mg/mL INJ 12.5 MG IVP (17:55)
--- NOTE | 2020-10-03 18:11 | SUR.PHASEI ---
1755 VERBAL REPORT TO FLOOR PT AWAKES AND EMETERIO OUT WITH C/O OF PAIN TO BACK OF NECK, PT RESTLESS MOAING SHIVERING , WARM BLANKETS X 4 TO PT PT STILL SHIVERING SEE DEMEROL 12.5MG IVP GIVEN FOR SHIVERING AND PAIN 1812 PT SLEEPS IF NOT DISTURBED PT AWAKES TO VOICE EASILY TAKING OCC ICE CHIPS, PT STATES PAIN IS ( STILL BAD) PT UNABLE TO STAY AWAKE, GOOD RESP EFFORT AND SATS MAINTAINED AT 100% WITH 3LNC. PT TO GO TO FLOOR WITH RN.
[2020-10-03] MEDS: meperidine 50 mg/mL INJ (18:36)
[2020-10-03] MEDS: lactated ringers 1,000 ML 90 ML IV (18:45)
--- NOTE | 2020-10-03 18:51 | PC.NURSE ---
[facility]
[2020-10-03] MEDS: atorvastatin 40 mg Tablet 20 MG PO (20:59)
[2020-10-03] MEDS: pregabalin 75 mg Capsule PO (20:59)
[2020-10-03] MEDS: hyoscyamine ODT 0.125 mg Tablet PO (21:00)
[2020-10-03] MEDS: ezetimibe 10 mg Tablet PO (21:00)
[2020-10-03] MEDS: morphine 4 mg/mL SDV 1 mL 2 MG IVP (23:36)
--- NOTE | 2020-10-03 23:37 | PC.NURSE ---
HYDROCODONE ALLERGY Pt had order for Hydrocodone and nurse did not realize was on allergy list until med in room and opened. Med was wasted and is being given IV Morphine for pain
[2020-10-04] VITALS (13 sets, daily range): BP systolic 135–160; BP diastolic 73–82; PULSE 66–115; RESP 12–20; TEMP 36.7–37.6; O2SAT 92–99
[2020-10-04] MEDS: ondansetron 2 mg/ML SDV 2 mL 4 MG IVP ×2 (01:14→10:10)
[2020-10-04] MEDS: ketorolac 30 mg/mL INJ IVP ×2 (01:14→09:58)
--- NOTE | 2020-10-04 01:27 | PC.NURSE ---
PAIN/NAUSEA/BSC Woke up needing to urinate but was also nauseated with some dry heaves which caused increased and severe pain in her neck. Was assisted to BSC and was given IV Zofran & Toradol. Urinated 900ml and returned to bed. Resting quietly after back to bed. Warm blankets applied for c/o being cold
[2020-10-04] MEDS: morphine 4 mg/mL SDV 1 mL 2 MG IVP ×2 (03:29→16:23)
[2020-10-04] MEDS: lactated ringers 1,000 ML 90 ML IV ×2 (05:21→16:22)
[2020-10-04] MEDS: enoxaparin 40 mg/0.4 mL Syringe SUBCUT (05:24)
--- NOTE | 2020-10-04 06:08 | PC.NURSE ---
SHIFT SUMMARY Has rested well. Good pain relief with the IV Toradol and Morphine. Also no further c/o nausea since receiving IV Zofran. IV fluids infusiing and has received 2 doses of IV Cefazolin. SQ Lovenox started this am. Has had 300ml sanguinous drainage from Hemovac drain this shift. Dressing intact to posterior neck remains C&D and cervical collar in place.
--- NOTE | 2020-10-04 09:29 | P.PN_ITS ---
Subjective Subjective: Interval history: pain in neck resting in bed Vitals/I&O/Wt Last Vital Signs Temp 99.2 F 10/04/20 09:00 Pulse 90 10/04/20 09:00 Resp 18 10/04/20 09:00 BP 156/76 10/04/20 09:00 Pulse Ox 99 10/04/20 09:00 10/03/20 10/04/20 10/04/20 22:59 06:59 14:59 Intake Total 820 / 870 1254 / 2124 Output Total 1340 / 1340 1040 / 2380 Balance -520 / -470 214 / -256 Physical Exam Narrative: EXAM NARRATIVE: C-Collar in place moving all extremities Urinary Catheter Management^: Dougherty: Cath Placed During This Visit: yes, but has since been removed by the nurse Urinary Catheter Date of Insertion: 10/03/20 Urinary Catheter Time of Insertion: 14:25 Date Urinary Catheter Removed: 10/03/20 Time Urinary Catheter Discontinued: 16:55 Data : 09/03/20 10:10 10/03/20 12:33 A&P Assessment and plan (1) Cervical spondylosis with myelopathy: POD #1 C3-T2 PSF Up with PT D/C drain Status: Acute Attestations Medical Necessity Statement*: pain control Coding Level of Care Code Acute Director [employer] for Roseline Carpenter Diagnoses Cervical spondylosis with myelopathy M47.12
[2020-10-04] MEDS: hyoscyamine ODT 0.125 mg Tablet PO ×4 (09:57→20:11)
[2020-10-04] MEDS: amlodipine 5 mg Tablet 2.5 MG PO (09:57)
[2020-10-04] MEDS: docusate sodium 100 mg Capsule PO ×2 (09:57→18:08)
[2020-10-04] MEDS: pregabalin 75 mg Capsule PO ×4 (09:57→20:11)
[2020-10-04] MEDS: acetaminophen 325 mg Tablet 650 MG PO ×2 (10:10→18:07)
[2020-10-04] MEDS: ezetimibe 10 mg Tablet PO (20:11)
[2020-10-04] MEDS: atorvastatin 40 mg Tablet 20 MG PO (20:11)
[2020-10-05] VITALS (8 sets, daily range): BP systolic 122–155; BP diastolic 71–88; PULSE 77–126; RESP 16–18; TEMP 36.6–37.6; O2SAT 92–100
[2020-10-05] MEDS: morphine 4 mg/mL SDV 1 mL 2 MG IVP ×3 (00:08→11:05)
[2020-10-05] MEDS: lactated ringers 1,000 ML 90 ML IV (03:40)
[2020-10-05] MEDS: ondansetron 2 mg/ML SDV 2 mL 4 MG IVP ×2 (03:43→11:07)
[2020-10-05] MEDS: enoxaparin 40 mg/0.4 mL Syringe SUBCUT (05:43)
[2020-10-05] MEDS: hyoscyamine ODT 0.125 mg Tablet PO ×2 (08:35→11:08)
[2020-10-05] MEDS: pregabalin 75 mg Capsule PO ×2 (08:35→11:08)
[2020-10-05] MEDS: docusate sodium 100 mg Capsule PO (08:35)
[2020-10-05] MEDS: amlodipine 5 mg Tablet 2.5 MG PO (08:35)
[2020-10-05] MEDS: ketorolac 30 mg/mL INJ IVP (08:39)
--- NOTE | 2020-10-05 09:49 | P.DS_ITS ---
Discharge Providers Date of Admission: 10/03/20 14:18 Date of Discharge: October 05, 2020 Attending Provider at Admission: Alex Cowan DO Attending Provider at Discharge: Alex Cowan DO Primary Care Provider: cA Collins MD Diagnoses at Discharge Discharge Diagnosis (1) Cervical spondylosis with myelopathy: Status: Acute Reason for Visit Reason for Visit: psif, decompression Hospital Course Hospital Course pt admitted on 10/03/20 s/p SF C3-T2 stayed an extra day for pain control and D/c on 10/05/20 Physical Exam Urinary Catheter Management^: Dougherty: Cath Placed During This Visit: yes, but has since been removed by the nurse Urinary Catheter Date of Insertion: 10/03/20 Urinary Catheter Time of Insertion: 14:25 Date Urinary Catheter Removed: 10/03/20 Time Urinary Catheter Discontinued: 16:55 Discharge Data Data Completed and Pending: Pending at discharge Category Date Time Status C-arm Fluoroscopy 77952 Routine Exams 10/03/20 11:52 Taken XR cervical spine 1V 33302 Routine Exams 10/03/20 16:54 Taken Vitals: Last Vital Signs Temp 99.6 F 10/05/20 04:00 Pulse 96 10/05/20 07:50 Resp 18 10/05/20 07:50 BP 153/83 10/05/20 04:00 Pulse Ox 98 10/05/20 07:50 Discharge Plan Discharge Patient Disposition: Home Condition: Stable Prescriptions: New morphine 30 mg tablet 30 mg PO Q8H PRN (Reason: pain) 10 Days Qty: 30 RF: 0 Continued dicyclomine 10 mg capsule 10 mg PO TID PRN (Reason: stomach cramps) RF: 0 metaxalone [Skelaxin] 800 mg tablet 800 mg PO TID@08,12,20 RF: 0 hyoscyamine sulfate [Levsin] 0.125 mg tablet 0.125 mg PO TID RF: 0 ezetimibe [Zetia] 10 mg tablet 10 mg PO DAILY@20 RF: 0 simvastatin [Zocor] 40 mg tablet 40 mg PO DAILY@20 RF: 0 cholecalciferol (vitamin D3) 10 mcg (400 unit) capsule 10 mcg PO DAILY RF: 0 lidocaine 5 % ointment 1 applic topical QID PRN (Reason: Rash) RF: 0 (DME) Bone growth Stimulator E0748 See Rx Instructions .Route .MEDSUPPLY Qty: 1 RF: 0 morphine 30 mg tablet 30 mg PO QID PRN (Reason: Pain) RF: 0 pregabalin [Lyrica] 75 mg Capsule 75 mg PO QID@08,12,15,20 RF: 0 meclizine [Motion Relief (meclizine)] 25 mg tablet 12.5 mg PO BID PRN (Reason: dizziness) Qty: 10 RF: 0 albuterol sulfate 90 mcg/actuation Hfa Aerosol Inhaler 2 puff INHALATION Q4H PRN (Reason: Shortness Of Breath) RF: 0 amlodipine [Norvasc] 2.5 mg Tablet 2.5 mg PO DAILY RF: 0 Discharge Orders: Discharge Order (Routine); Ordered 10/05/20 Ordered By: Alex Cowna Discharge Diet: Advance as tolerated Discharge Activity: Limit activity as instructed Patient Instructions: Opioid Safety Activity Restrictions/Additional Instructions: Thank you for choosing [facility] for your care! The following is a list of instructions, from your provider, to follow upon your discharge to ensure you have the optimal recovery from your recent injury or surgery. Anterior Cervical Discectomy and Fusion: What to Expect at Home Your Recovery Follow-up care is a smith part of your treatment and safety. Be sure to make and go to all appointments, and call your doctor if you are having problems. If you do not already have a follow-up appointment made, call office in the next 1-3 days to make follow up appointment for 1 weeks at [phone]. It is also a good idea to know your test results and keep a list of the medicines you take. You can expect your neck to feel stiff or sore after surgery. This should improve in the weeks after surgery. But it may take 4 to 6 months for you to get better completely. You may have trouble sitting or standing in one position for very long and may need pain medicine in the weeks after your surgery. It may take 4 to 6 weeks to get back to your usual activities, but it may depend on what kind of surgery you had. Your throat will feel sore and it may be difficult to swallow for the first 3 days after your surgery. As long as you can get liquids down without difficulty, this should slowly improve, otherwise call our office or seek medical attention if it becomes increasingly difficult to get anything down including liquids. Avoid hot liquids for first 3-5 days. Soothing foods/liquids such as jello, pudding, and luke warm soups are recommended until swallowing improves. Staying elevated will also help, it's advised you keep propped up at while sleeping to help reduce the swelling. You may use an ice pack directly on your incision or around it on the front of your neck, using a cloth to protect your skin; and a heating pad to the back of your neck as needed. Do not use over the counter anti-inflammatory medications (Ibuprofen, Motrin, Aleve, Advil, etc) Taking these meds after having a fusion can delay fusion rates, we recommend you avoid them for the first 3 months after your surgery[address] Dr. Cowan may advise you to work with a physical therapist to strengthen the muscles around your neck and back - this will be discussed at your follow - up appointments. The pain or numbness you were having in your arms before surgery should get better or go away completely. This care sheet gives you a general idea about how long it will take for you to recover. But each person recovers at a different pace. Follow the steps below to get better as quickly as possible. How can you care for yourself at home? Activity ? Rest when you feel tired. Getting enough sleep will help you recover. ? Try to walk each day. Start by walking a little more than you did the day before. Bit by bit, increase the amount you walk. Walking boosts blood flow and helps prevent pneumonia and constipation. Walking may also decrease your muscle soreness after surgery. ? No lifting anything that is more that 5 pounds. This may include heavy grocery bags and milk containers, a heavy briefcase or backpack, cat litter or dog food bags, a child, or a vacuum filter screen cleaner. ? Avoid strenuous activities, such as bicycle riding, jogging, weightlifting, or aerobic exercise, until your doctor says it is okay. ? Do not drive until your follow-up visit after your surgery, or until your doctor says it isokay. ? Avoid taking long car trips for 2 to 4 weeks after surgery. Your neck may become tired and painful from sitting too long in one position. ? You will probably need to take 4 to 6 weeks off from work. It depends on the type of work you do and how you feel. ? You may have sex as soon as you feel able, but avoid positions that put stress on your neck or cause pain. Diet ? You can eat your normal diet. If your stomach is upset, try bland, low-fat foods like plain rice, broiled chicken, toast, and yogurt ? Drink plenty of fluids. If you have kidney, heart, or liver disease and have to limit fluids, talk with your doctor before you increase the amount of fluids you drink. ? You may notice that your bowel movements are not regular right after your surgery. This is common. Try to avoid constipation and straining with bowel movements. You may want to take a fiber supplement every day. If you have not had a bowel movement after a couple of days, ask your doctor about taking a mild laxative. Medicines ? Take pain medicines exactly as directed. 1. If Dr. Cowan gave you a prescription medicine for pain, take lt as prescribed. 2. Do not take two or more pain medicines at the same time unless the doctor told you to. Many pain medicines have acetaminophen, which is Tylenol. Too much acetaminophen {Tylenol) can be harmful. 3. If you think your pain pill is making you sick to your stomach: 4. Take your pills after meals (unless your doctor has told you not to). 5. Ask your Dr. for a different pain pill. Incisioncare ? ? Use a heating pad, hot water bottle, or gentle massage on your back to reduce stiffness. Avoid putting heat on your incision When should you call for help? ? Call 911 anytime you think you may need emergency care. For example, call if: ? You pass out (lose consciousness). ? You have sudden chest pain and shortness of breath, or you cough upblood. ? You cannot swallow. ? You have severe pain in your neck or back. ? Call your Dr. or seek immediate medical care if: ? You have pain that does not get better after you take pain pills. ? You have loose stitches, or your incision comes open. ? You have blood or fluid draining from the incision. ? You have signs of infection, such as: 1. Increased pain, swelling, warmth, or redness. 2. Red streaks leading from the site. 3. Pus draining from the site. 4. Swollen lymph nodes in your neck or armpits. 5. A fever. ? You have severe pain in your arms. ? You have new or increased weakness or numbness in your arms. ? Watch closely for any changes in your health, and be sure to contact your doctor if: ? You do not have a bowel movement after taking a laxative. Discharge Attestations Time Spent in Discharge Care*: less than 30 min Status at Discharge: Cognitive status at discharge: cognitively intact , Behavioral status at discharge: cooperative , Quality Metrics Clinical Quality Measures During this hospital stay, did patient experience: None Coding Level of Care Code Acute [facility] DYLAN note Diagnoses Cervical spondylosis with myelopathy M47.12
--- NOTE | 2020-10-05 11:59 | PC.NURSE ---
discharge instructions given to patient and . patient and verbalized understand of instructions. patient taken to private vehicle via wheelchair by consumer loan underwriter.
== END 2020-10-05 12:02 | disposition home or self-care (01) | DRG 460 ==
LOC: MEDSURG 10-04 12:00
PROVIDERS: Admitting Provider Orthopaedic Surgery; PCP Family Medicine; Visit Provider Orthopaedic Surgery
PROC: 0RG607J Fusion of Thoracic Vertebral Joint with Autologous Tissue Substitute, Posterior Approach, Anterior Column, Open Approach (ICD-10-PCS; principal; 2020-10-03 13:30)
PROC: 0RG607J Fusion of Thoracic Vertebral Joint with Autologous Tissue Substitute, Posterior Approach, Anterior Column, Open Approach (ICD-10-PCS; CPT 63005; 2020-10-03 13:30)
DX: M47.12 Other spondylosis with myelopathy, cervical region (principal); J45.909 Unspecified asthma, uncomplicated; Z79.51 Long term (current) use of inhaled steroids; G89.29 Other chronic pain; K46.9 Unspecified abdominal hernia without obstruction or gangrene; Z87.442 Personal history of urinary calculi; E78.5 Hyperlipidemia, unspecified; I10 Essential (primary) hypertension; Z96.659 Presence of unspecified artificial knee joint
CPT/HCPCS: 36415; 72020; 76000; 80048; 85025; 93005; 94640; 96372; 97116; 97161; 97530; 97760; C1713; C9359; J0330; J0690; J1650; J1885; J2175; J2270; J2405; J2704; J3010; J3370; J3490; J7030; L0174; P9041

== ENCOUNTER → 2020-11-13 08:48 | Outpatient (BNVA) | payer OTHER, MEDICARE, SELFPAY | PROVIDERS: PCP Family Medicine; Visit Provider Orthopaedic Surgery | DX: M47.12 Other spondylosis with myelopathy, cervical region (principal) | CPT/HCPCS: 72040 ==

== ENCOUNTER → 2020-12-04 13:23 | Outpatient (BNVA) | payer OTHER, MEDICARE, SELFPAY | PROVIDERS: PCP Family Medicine; Visit Provider Surgery | DX: Z12.11 Encounter for screening for malignant neoplasm of colon (principal); Z20.822 Contact with and (suspected) exposure to COVID-19 | CPT/HCPCS: 87635 ==

== ENCOUNTER 2020-12-10 07:01 | Day surgery (SDC) | payer OTHER, MEDICARE, SELFPAY ==
[2020-10-10 09:01] VITALS: BMI 24.5
[2020-12-08 16:10] VITALS: BMI 26.9
--- NOTE | 2020-12-10 07:38 | ANES.PREANE2 ---
Pre-Anesthetic Assessment Pre-Anesthetic Assessment: Height/Weight: Height 1.7 m Weight 78.018 kg Preop Diagnosis: Change in bowel habits Proposed Procedure: Operation Date: 12/10/20 08:30 Proposed Procedures p Colonoscopy 49691 R19.7(Not Applicable) - Nguyễn Colmenares MD Was Beta Pranav taken within 24 hours: N/A Was Clonidine taken within 24 hours: N/A Social: Social History: No alcohol and No tobacco Exam: Pre-Anes Outpt Exam: alert, oriented x 3, clear to auscultation bilaterally and regular rate & rhythm Airway: Submandibular: WNL Cervical ROM: Other (limited) MP: 2 Dentition: Full Pulmonary: Pulmonary: Asthma CV/HEM: CV/HEM: HTN Metabolic: Metabolic: Hyperlipidemia Musc/skel: Comments: Chronic pain/opioid Anesthetic Plan: ASA status: 3 Anesthesia: MAC Risk of > 500 ml blood loss (7ml/kg in children): No PFSH Anesthesia PFSH: Medical History Acute gastritis Asthma Cervical disc disease Chronic back pain Depression DJD (degenerative joint disease) Duodenitis Hernia History of kidney stones Hyperlipidemia Hypertension Nausea Surgical History History of back surgery History of knee joint replacement History of lumbar surgery History of neck surgery History of tonsillectomy History of total hysterectomy Family History Other CAD (coronary artery disease) Dementia Social History Smoking and tobacco status: never smoked Second hand smoke exposure: Yes Alcohol intake: never Data Anesthesia Cardiac Studies: No Data to Display
--- NOTE | 2020-12-10 07:54 | P.HP_ITS ---
Same Day Surgery H&P Indication for Procedure/HPI DATE OF PROCEDURE: December 10, 2020 CHIEF COMPLAINT/INDICATIONFOR SURGICAL PROCEDURE: Diarrhea PREOP DIAGNOSIS: Change in bowel habits PLANNED PROCEDRUE: Operation Date: 12/10/20 08:30 Proposed Procedures p Colonoscopy 93703 R19.7(Not Applicable) - Nguyễn Colmenares MD After thorough history and physical examination and reviewing the chart and images with my personal interpretation of the CT scan of the abdomen and pelvis, plan to perform diagnostic colonoscopy and will plan to obtain stool studies the same day. I discussed with the patient in details the risks,benefits,alternatives and indications.The risk of aspiration, bleeding, soft tissue injury, perforation of the colon and other potential concomitant complications were explained to the patient in details,also the potential need for Laproscoy/Laparotomy to repair any related complications including but not limited to colectomy and or Closotomy.The patient understood this well and did agree to proceed. Rationale was carefully and clearly discussed with the patient.Appropriate informed consent have been reviewed and signed All questions have been answered and all concerns have been addressed to patient's satisfaction. Verbal and written Instructions were given to the patient for colonoscopy prep. Interim history 12/10/2020 Patient comes today for diagnostic colonoscopy ROS All systems have been reviewed negative except as for the above or per problem l ist Medications/Allergies* Home Medications Medication Instructions Recorded Confirmed Type dicyclomine 10 mg capsule 10 mg PO TID PRN cap 07/30/19 12/08/20 History ezetimibe 10 mg tablet 10 mg PO DAILY@20 07/30/19 12/08/20 History hyoscyamine sulfate 0.125 mg tablet 0.125 mg PO TID 07/30/19 12/08/20 History metaxalone 800 mg tablet 800 mg PO TID@,,20 07/30/19 12/08/20 History simvastatin 40 mg tablet 40 mg PO DAILY@07/30/19 12/08/20 History morphine 30 mg PO QID PRN 05/13/20 12/08/20 History pregabalin [Lyrica] 75 mg PO QID@08,12,15,20 05/13/20 12/08/20 History albuterol sulfate 2 puff INHALATION Q4H PRN 07/28/20 12/08/20 History cholecalciferol (vitamin D3) 10 10 mcg PO DAILY 08/21/20 12/08/20 History mcg (400 unit) capsule lidocaine 5 % topical ointment 1 applic TOPICAL QID PRN 08/21/20 12/08/20 History amlodipine [Norvasc] 2.5 mg PO DAILY 09/03/20 12/08/20 History Allergies/Adverse Reactions Allergy/AdvReac Type Severity Reaction Status Date / Time acetaminophen [From Vicodin] Allergy anaphylaxis Verified 12/10/20 07:55 aspirin Allergy na Verified 12/10/20 07:55 hydrocodone [From Vicodin] Allergy anaphylaxis Verified 12/10/20 07:55 naproxen Allergy bleeding Verified 12/10/20 07:55 ulcer niacin Allergy rash Verified 12/10/20 07:55 prednisone Allergy rash Verified 12/10/20 07:55 Pertinent History/Comorbid Conditions* Medical History (Updated 09/15/20 @ 00:01 by ) Acute gastritis Asthma Cervical disc disease Chronic back pain Depression DJD (degenerative joint disease) Duodenitis Hernia History of kidney stones Hyperlipidemia Hypertension Nausea Surgical History (Updated 05/13/20 @ 11:46 by Cleveland Todd MD) History of back surgery History of knee joint replacement History of lumbar surgery History of neck surgery History of tonsillectomy History of total hysterectomy Family History (Updated 05/13/20 @ 11:47 by Cleveland Todd MD) CAD (coronary artery disease) Dementia Social History Smoking and tobacco status: never smoked Second hand smoke exposure: Yes Alcohol intake: never Pertinent Exam Findings alert, oriented x 3, clear to auscultation bilaterally, regular rate & rhythm and procedure specific exam findings (Abdominal examination nontender soft) Recommendations Surgery/Procedure today (Diagnostic colonoscopy with possible biopsy) Coding Level of Care Code Acute [employer] for Roseline Carpenter
[2020-12-10 07:57] VITALS: BP 138/74; PULSE 90; RESP 18; TEMP 36.2; O2SAT 100
[2020-12-10] MEDS: sodium chloride 0.9% 1,000 ML 30 ML IV (08:19)
[2020-12-10 09:35] VITALS: BP 125/68; PULSE 74; RESP 16; TEMP 36.1; O2SAT 93
[2020-12-10 09:53] VITALS: BP 154/89; PULSE 68; RESP 18; O2SAT 98
--- NOTE | 2020-12-10 10:00 | ANE.PACU2 ---
Inpatient post-anesthesia follow up: Airway intact: Yes Vital signs: Temperature 97 F Pulse Rate 68 Respiratory Rate 18 Blood Pressure 154/89 Pulse Oximetry 98 Oxygen Delivery Me thod Room Air Oxygen Flow Rate Fraction of Inspir ed Oxygen Hydration adequate: Yes Mental status: Baseline
--- NOTE | 2020-12-10 10:11 | PC.NURSE ---
colon prep explained to pt and and written instructions given. pt stated she ate a sandwich last night and had an incomplete exam today due to excessive stool in colon.
== END 2020-12-10 10:17 | disposition home or self-care (01) ==
PROVIDERS: PCP Family Medicine; Visit Provider Surgery
PROC: 0DJD8ZZ Inspection of Lower Intestinal Tract, Via Natural or Artificial Opening Endoscopic (ICD-10-PCS; CPT 45330; principal; 2020-12-10 08:30)
DX: R19.4 Change in bowel habit (principal); R19.7 Diarrhea, unspecified; J45.909 Unspecified asthma, uncomplicated; M19.90 Unspecified osteoarthritis, unspecified site; E78.5 Hyperlipidemia, unspecified; I10 Essential (primary) hypertension; Z82.49 Family history of ischemic heart disease and other diseases of the circulatory system
CPT/HCPCS: 45330; 82274; 83630; 87493; 87506; 96360; 96361; J2704; J7030

== ENCOUNTER → 2020-12-18 08:27 | Outpatient (BNVA) | payer OTHER, MEDICARE, SELFPAY | PROVIDERS: PCP Family Medicine; Visit Provider Orthopaedic Surgery | DX: M47.12 Other spondylosis with myelopathy, cervical region (principal) | CPT/HCPCS: 72040 ==

== ENCOUNTER 2023-03-03 23:59 | Outpatient (RCR) | payer MEDICARE, SELFPAY | END 2023-03-17 23:59 | disposition home or self-care (01) | LOC: TPT 23:59 | PROVIDERS: Visit Provider Orthopaedic Surgery | DX: Z96.651 Presence of right artificial knee joint (principal); Z47.1 Aftercare following joint replacement surgery | CPT/HCPCS: 97110; 97162 ==

== ENCOUNTER 2023-03-18 06:00 | Outpatient (RCR) | payer MEDICARE, SELFPAY | END 2023-04-17 23:59 | disposition home or self-care (01) | LOC: TPT 06:00 | PROVIDERS: Visit Provider Orthopaedic Surgery | DX: Z47.1 Aftercare following joint replacement surgery (principal); Z96.651 Presence of right artificial knee joint | CPT/HCPCS: 97110 ==

== ENCOUNTER 2023-12-18 14:46 | Emergency (ER) | payer MEDICARE, SELFPAY ==
[2023-12-18 14:54] VITALS: BP 111/71; PULSE 74; RESP 16; TEMP 36.7; O2SAT 97; BMI 26.4
--- NOTE | 2023-12-18 15:04 | CTR_ITS ---
PROCEDURE INFORMATION: Exam: CT Maxillofacial Without Contrast Exam date and time: 12/18/2023 3:10 PM Age: 78 years old Clinical indication: Injury or trauma; Fall; Blunt trauma (contusions or hematomas); Orbit/periorbital; Right TECHNIQUE: Imaging protocol: Computed tomography of the face without contrast. Radiation optimization: All CT scans at this facility use at least one of these dose optimization techniques: automated exposure control; mA and/or kV adjustment per patient size (includes targeted exams where dose is matched to clinical indication); or iterative reconstruction. COMPARISON: CT head wo con* [id number] 12/18/2023 3:10 PM RADIATION DOSE METRICS: Total DLP (mGy-cm): 519.1 FINDINGS: Orbital cavities: Orbits are normal. Globes are unremarkable. Paranasal sinuses: Unremarkable. No air-fluid levels. Bones: No acute fracture is seen. Incidental note is made of chronic prominent degenerative changes and hypertrophic bone formation about the tip of the odontoid, chronic with 2020 CT head exam. Soft tissues: No fluid collection to indicate hematoma. CT/CT facial bones wo con* [id number] IMPRESSION: No acute fracture is seen.
--- NOTE | 2023-12-18 15:04 | CTR_ITS ---
PROCEDURE INFORMATION: Exam: CT Head Without Contrast Exam date and time: 12/18/2023 3:10 PM Age: 78 years old Clinical indication: Injury or trauma; Fall; Blunt trauma (contusions or hematomas) TECHNIQUE: Imaging protocol: Computed tomography of the head without contrast. Radiation optimization: All CT scans at this facility use at least one of these dose optimization techniques: automated exposure control; mA and/or kV adjustment per patient size (includes targeted exams where dose is matched to clinical indication); or iterative reconstruction. COMPARISON: CT head wo con* [id number] 07/28/2020 11:53 AM RADIATION DOSE METRICS: Total DLP (mGy-cm): 1139 FINDINGS: Brain: Mild atrophic change in mild chronic small-vessel disease change, as noted with prior exam. No intracranial hemorrhage or hematoma is seen. No mass effect or shift of midline structures. No findings of territorial or large vessel ischemic infarct. Bilateral basal ganglia calcifications again noted. Cerebral ventricles: No ventriculomegaly. Paranasal sinuses: Visualized sinuses are unremarkable. No fluid levels. Mastoid air cells: Visualized mastoid air cells are well aerated. Bones: Bone windows of the skull show no fracture or acute osseous abnormality. Soft tissues: Unremarkable. CT/CT head wo con* [id number] IMPRESSION: No acute intracranial abnormality or significant change with prior exam.
--- NOTE | 2023-12-18 15:55 | ED_ITS ---
HPI - Fall General: Chief Complaint: Fall Stated Complaint: Right eye injury UC sent Time Seen by Provider: 12/18/23 15:51 History of Present Illness: 78-year-old female comes in today for in jury to the right eyelid. Patient states that she tripped and fell this morning striking her head and face against the wire rack within her closet. Patient reports a headache. Patient was seen at urgent care and referred to the ER for further evaluation and treatment. Visible laceration through the margin of the eyelid of the right side. Associated symptoms-after fall: Reports headache(s) Related Data Home Medications Medication Instructions Recorded Confirmed dicyclomine 10 mg capsule 10 mg PO TID PRN stomach cramps 07/30/19 12/18/20 ezetimibe 10 mg tablet (Zetia) 10 mg PO DAILY@07/30/19 12/18/20 hyoscyamine sulfate 0.125 mg 0.125 mg PO TID 07/30/19 12/18/20 tablet (Levsin) metaxalone 800 mg tablet (Skelaxin) 800 mg PO TID@08,12,20 07/30/19 12/18/20 simvastatin 40 mg tablet (Zocor) 40 mg PO DAILY@20 07/30/19 12/18/20 morphine 30 mg immediate release 30 mg PO QID PRN Pain 05/13/20 12/18/20 tablet pregabalin 75 mg capsule (Lyrica) 75 mg PO QID@08,12,15,20 05/13/20 12/18/20 albuterol sulfate 90 mcg/actuation 2 puff inhalation Q4H PRN 07/28/20 12/18/20 aerosol inhaler Shortness Of Breath cholecalciferol (vitamin D3) 10 10 mcg PO DAILY 08/21/20 12/18/20 mcg (400 unit) capsule lidocaine 5 % topical ointment 1 applic topical QID PRN Rash 08/21/20 12/18/20 amlodipine 2.5 mg tablet (Norvasc) 2.5 mg PO DAILY 09/03/20 12/18/20 Previous Rx's Medication Instructions Recorded meclizine 25 mg tablet (Motion 12.5 mg (1/2 x 25 mg) PO BID PRN 05/17/20 Relief (meclizine)) dizziness #10 tabs Bone growth Stimulator E0748 #1 ea 08/27/20 cephalexin 500 mg capsule 500 mg PO BID 7 days #14 caps 12/18/23 Allergies Allergy/AdvReac Type Severity Reaction Status Date / Time acetaminophen [From Vicodin] Allergy anaphylaxis Verified 12/18/23 15:03 aspirin Allergy na Verified 12/18/23 15:03 hydrocodone [From Vicodin] Allergy anaphylaxis Verified 12/18/23 15:03 naproxen Allergy bleeding Verified 12/18/23 15:03 ulcer niacin Allergy rash Verified 12/18/23 15:03 prednisone Allergy rash Verified 12/18/23 15:03 Review of Systems General: Reports: 10 or more systems reviewed and unremarkable except in HPI and below Skin/Breast: Reports: new lesions (Laceration right lower eyelid) Neuro: Reports: headache(s) PFSH ED PFSH: Medical History Acute gastritis Asthma Cervical disc disease Chronic back pain Depression DJD (degenerative joint disease) Duodenitis Hernia History of kidney stones Hyperlipidemia Hypertension Nausea Surgical History History of back surgery History of knee joint replacement History of lumbar surgery History of neck surgery History of tonsillectomy History of total hysterectomy Family History Other CAD (coronary artery disease) Dementia Social History Second hand smoke exposure: Yes Alcohol intake: never Substance/Drug Use: never Physical Exam Const: COMMON NORMALS: alert HENMT: COMMON NORMALS: normocephalic HEAD & SCALP: normocephalic Eye: COMMON NORMALS: Equal, round and reactive pupils present and conjunctivae normal EYELID: eyelid abnormality right lower eyelid (Lid margin has a laceration vertical 1 cm) laceration CONJUNCTIVA: Yes conjunctivae normal SCLERA: sclerae normal CORNEA: Yes corneas normal PUPIL: Yes Equal, round and reactive pupils present EOM: No EOM abnormal Neck/C-Spine: COMMON NORMALS: full ROM Resp: COMMON NORMALS: normal respiratory effort Cardio: COMMON NORMALS: regular rate RATE: regular rate GI: COMMON NORMALS: Soft to palpation PALPATION: Yes Soft to palpation Neuro: SENSORIUM/ORIENTATION: Yes alert Procedures Laceration Laceration 1: Site: other (Right lower eyelid) Side (If applicable): right Size (cm): 1 Description: irregular Local Anesthetic: lidocaine 2% Amount of anesthesia used (mL): 1 Pre-repair: wound explored and irrigated extensively Skin layer closed with: nylon Size (cm): 6-0 Number of sutures: 3 Technique: simple, interrupted Course Vital Signs: Vital signs: Vital Signs Temperature 98.1 F 12/18/23 16:56 Pulse Rate 69 12/18/23 16:56 Respiratory Rate 16 12/18/23 16:56 Blood Pressure 113/69 12/18/23 16:56 Pulse Oximetry 98 12/18/23 16:56 Oxygen Delivery Me thod Room Air 12/18/23 14:54 MDM - Fall Medical Decision Making 78-year-old female comes in today with a eyelid laceration to the right lower eyelid vertically approximately 1 cm. Pupils are equal and reactive. Vision is normal. Patient denies any other complaints. Head injury did occur along with facial injury. Differential diagnosis includes not limited to intracranial bleeding, facial fracture, skull fracture, eyelid laceration. Reviewed exam with Dr. Paul Hardy, day habilitation specialist on-call, he recommended external sutures with well approximation of the margin of the eyelid. Wound was closed with 3 sutures of 6-0 Prolene. Approximation of the margin of eyelid was noted. Recommended follow-up with Dr. Hardy on Tuesday. Patient reported understanding of care plan and agreed. Patient was placed on cephalexin for prophylactic therapy. CT of the face and head were negative for any acute abnormalities. Lab Data Radiology Impressions Face CT 12/18/23 15:04 IMPRESSION: No acute fracture is seen. Head CT 12/18/23 15:04 IMPRESSION: No acute intracranial abnormality or significant change with prior exam. All radiology interpretation(s) finalized by discharge Discharge Plan Discharge Patient Disposition: Home Clinical Impression: Laceration, eyelid, right Qualifiers: Encounter type: initial encounter Qualified Code(s): S01.111A - Laceration without foreign body of right eyelid and periocular area, initial encounter Condition: Stable Prescriptions: New cephalexin 500 mg capsule 500 mg PO BID 7 Days Qty: 14 0RF No Action dicyclomine 10 mg capsule 10 mg PO TID PRN (Reason: stomach cramps) metaxalone [Skelaxin] 800 mg tablet 800 mg PO TID@08,12,20 hyoscyamine sulfate [Levsin] 0.125 mg tablet 0.125 mg PO TID ezetimibe [Zetia] 10 mg tablet 10 mg PO DAILY@20 simvastatin [Zocor] 40 mg tablet 40 mg PO DAILY@20 cholecalciferol (vitamin D3) 10 mcg (400 unit) capsule 10 mcg PO DAILY lidocaine 5 % ointment 1 applic topical QID PRN (Reason: Rash) (DME) Bone growth Stimulator E0748 See Rx Instructions .Route .MEDSUPPLY Qty: 1 0RF Rx Instructions: As directed morphine 30 mg tablet 30 mg PO QID PRN (Reason: Pain) pregabalin [Lyrica] 75 mg Capsule 75 mg PO QID@08,12,15,20 meclizine [Motion Relief (meclizine)] 25 mg tablet 12.5 mg PO BID PRN (Reason: dizziness) Qty: 10 0RF albuterol sulfate 90 mcg/actuation Hfa Aerosol Inhaler 2 puff INHALATION Q4H PRN (Reason: Shortness Of Breath) amlodipine [Norvasc] 2.5 mg Tablet 2.5 mg PO DAILY Discharge Orders: Discharge ED (Routine); Ordered 12/18/23 Ordered By: Nigel Howell Referrals: Paul Hardy [Physician] - 12/20/23 8:00 am (Call to verify appointment) Ac Collins MD [Primary Care Provider] - Discharge Diet: Usual diet Discharge Activity: Increase activity as tolerated Patient Instructions: Facial Laceration (ED) Activity Restrictions/Additional Instructions: Home and rest. Keep wound clean and dry as much as possible. Follow-up with Dr. Sheridan's office on Tuesday. Return to ER for new concerns. 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
[2023-12-18] MEDS: cephALEXin 500 mg Capsule PO (16:49)
[2023-12-18 16:56] VITALS: BP 113/69; PULSE 69; RESP 16; TEMP 36.7; O2SAT 98
== END 2023-12-18 16:51 | disposition home or self-care (01) ==
PROVIDERS: Emergency Provider Nurse Practitioner Family; PCP Family Medicine
DX: S01.111A Laceration without foreign body of right eyelid and periocular area, initial encounter (principal); Z77.22 Contact with and (suspected) exposure to environmental tobacco smoke (acute) (chronic); W01.198A Fall on same level from slipping, tripping and stumbling with subsequent striking against other object, initial encounter; E78.5 Hyperlipidemia, unspecified; I10 Essential (primary) hypertension
CPT/HCPCS: 12011; 70450; 70486; 99284; 99291

== ENCOUNTER 2024-02-28 15:00 | Outpatient (CLI) | payer MEDICARE, SELFPAY ==
--- NOTE | 2024-02-28 15:02 | XR_ITS ---
WS: [id number] SCREENING DEXA SCAN [employer] CLINICAL INFORMATION: POSTMENOPAUSAL COMPARISON: 2017 FINDINGS: The L1-L4 bone mineral density measures 1.396 g/cm2. This corresponds to a T score score of 1.8 and Z score of 3.2. Left femoral neck bone mineral density measures 0.954 g/cm2. This corresponds to a T score of -0.4 an d Z score of 1.2. Right femoral neck bone mineral density measures 0.899 g/cm2. This corresponds to a T score -0.9of an d Z score of 0.8. Mean femoral neck bone mineral density measures 0.927 g/cm2. This corresponds to a T score of -0.6 an d Z score of 1.0. XR/XR DEXA axial skeleton* [id number] IMPRESSION: Normal bone mineralization. Patient's FRAX calculated 10 year probability for major osteoporotic fracture i s 11.6% and osteoporotic hip fracture is 2.3%. Lumbar spine bone mineral density increased 9.0% Femoral neck bone mineral density decreased -8.8%
== END 2024-02-28 15:01 | disposition home or self-care (01) ==
LOC: RAD 15:01
PROVIDERS: PCP Family Medicine; Visit Provider Family Medicine
DX: Z13.820 Encounter for screening for osteoporosis (principal); Z78.0 Asymptomatic menopausal state
CPT/HCPCS: 77080

== ENCOUNTER 2024-07-12 13:01 | Outpatient (CLI) | payer MEDICARE, SELFPAY ==
--- NOTE | 2024-07-12 13:03 | MM_ITS ---
WS: [id number] BILATERAL SCREENING DIGITAL TOMOSYNTHESIS MAMMOGRAM WITH CAD HISTORY: SCREENING COMPARISON: 11/03/2016 Bilateral CC and MLO views with tomosynthesis and synthetic mammography submitted. Computer aided detection analyzed. Breast composition: The breasts are extremely dense, which lowers the sensitivity of mammography. No suspicious masses, microcalcifications or architectural distortion. Bilateral benign calcifications. Dense asymmetries are stable within each breast. MM/MM scr tomosynthesis [id number] IMPRESSION: BI-RADS: 2 - Benign FOLLOW UP: 1 Year Follow-up
== END 2024-07-12 13:02 | disposition home or self-care (01) ==
LOC: RAD 13:02
PROVIDERS: PCP Family Medicine; Visit Provider Family Medicine
DX: Z12.31 Encounter for screening mammogram for malignant neoplasm of breast (principal); R92.343 Mammographic extreme density, bilateral breasts; R92.1 Mammographic calcification found on diagnostic imaging of breast; N64.89 Other specified disorders of breast
CPT/HCPCS: 77063; 77067